=== PATIENT | male | born 1970 | race Caucasian/White ===

== ENCOUNTER 2021-10-31 11:36 | Inpatient (IN) ==
[2021-10-31] MEDS ORDERED: INSULIN REGULAR 100 UNIT/ML IV STA (12:06)
[2021-10-31] MEDS ORDERED: SODIUM CHLORIDE 0.9% 1,000 ML IV STA ×2 (12:06→13:14)
[2021-10-31 12:23] LABS: Basophils % 0.1 % (0.0-0.8); Hematocrit 31.2 VOL% (42.0-52.0); Hemoglobin 10.5 GM/DL (14.0-18.0); Immature Granulocytes % 1.2 %; Immature Granulocytes Absolute 0.17 #; Lymphocytes # 0.6 10*3/uL (1.4-4.0); Lymphocytes % 3.9 % (21.2-54.2); Mean Corpuscular HGB Conc 33.7 GM/DL (32-36); Mean Corpuscular Volume 83.9 FL (87-102); Mean Platelet Volume 10.3 FL (9.6-12.0); Monocytes # 1.3 10*3/uL (0.11-0.8); Monocytes % 9.4 % (1.7-12.7); Neutrophils % 85.4 % (38.7-73.9); Platelet Count 222 T/CUMM (130-400); Red Blood Count 3.72 MC/CUMM (3.8-5.5); Red Cell Distribution Width 13.6 % (9.3-17.3); White Blood Count 14.2 T/CUMM (4-12)
[2021-10-31 12:38] LABS: Albumin 1.3 G/DL (3.4-5.0); Bilirubin,Total 0.5 MG/DL (0.20-1.00); Calcium 8.4 MG/DL (8.5-10.1); Osmolality,Calculated 278.5 MOS/KG (273-304); Potassium 3.7 MMOL/L (3.5-5.1); Total Protein 6.5 G/DL (6.4-8.2)
[2021-10-31] MEDS ORDERED: LEVOFLOXACIN INJ 750 MG/150 ML PREMIX IV STA (13:15)
[2021-10-31] MEDS ORDERED: MORPHINE 2 MG/1 ML SYRINGE IV STA (13:22)
[2021-10-31 13:36] LABS: Lymphocytes 6 % (20-55); Total Cells Counted 100
[2021-10-31 13:37] LABS: Platelet Estimate Normal
[2021-10-31] MEDS ORDERED: DOCUSATE SODIUM 100 MG CAPSULE PO PRN ×2 (14:18→14:26)
[2021-10-31] MEDS ORDERED: MORPHINE 2 MG/1 ML SYRINGE IV PRN (14:18)
[2021-10-31] MEDS ORDERED: ALUMINUM/MAGNES/SIMETH MAX STR 30 ML UDCUP PO PRN (14:26)
[2021-10-31] MEDS ORDERED: ACETAMINOPHEN 325 MG TABLET PO PRN (14:26)
[2021-10-31] MEDS ORDERED: GLUCAGON 1 MG VIAL IM PRN (14:26)
[2021-10-31] MEDS ORDERED: LACTULOSE 20 GM/30 ML UDCUP PO PRN (14:26)
[2021-10-31] MEDS ORDERED: hydrALAZINE 20 MG/1 ML VIAL IV PRN (14:26)
[2021-10-31] MEDS ORDERED: SODIUM CHLORIDE 0.9% 1,000 ML IV SCH (14:30)
[2021-10-31] MEDS ORDERED: DEXTROSE 10% 250 ML BAG IV PRN (14:34)
[2021-10-31] MEDS: MEROPENEM 500 MG in SODIUM CHLORIDE 0.9% 100 ML IV SCH ×2 (15:07→22:04)
[2021-10-31] MEDS ORDERED: INSULIN GLARGINE 100 UNIT/ML SUBCUT ONE (15:33)
[2021-10-31 15:37] LABS: Amorphous Crystals,Urine Moderate /HPF (Few); Bacteria,Urine Occasional /HPF (Few); Hyaline Casts,Urine 17 /LPF (0-3)
[2021-10-31 15:45] LABS: Urine Appearance Slightly Cloudy (Clear); Urine Color Yellow (Yellow)
[2021-10-31 15:46] LABS: Bilirubin,Urine Negative (Negative); Blood, Urine Large mg/dL (Negative); Glucose,Urine (UA) >=1000 mg/dL (Negative); Ketones,Urine 15 mg/dL (Negative); Nitrite,Urine Negative (Negative); Protein,Urine 100 mg/dL (Negative)
[2021-10-31] MEDS: ENOXAPARIN 40 MG/0.4 ML SYRINGE SUBCUT SCH (15:59)
[2021-10-31] MEDS: VANCOMYCIN INJ 1,000 MG in SODIUM CHLORIDE 0.9% 250 ML IV SCH (16:00)
[2021-10-31] MEDS: SODIUM CHLORIDE 0.9% 1,000 ML IV SCH (16:00)
[2021-10-31] MEDS ORDERED: INSULIN REGULAR 100 UNIT/ML SUBCUT SCH (16:30)
[2021-10-31] MEDS: NICOTINE 21 MG/24 HR PATCH TRANSDERM SCH (17:00)
[2021-10-31] MEDS: HYDROmorphone 1 MG/1 ML SYRINGE IV PRN (17:10)
[2021-10-31] MEDS: INSULIN REGULAR 100 UNIT/ML SUBCUT SCH ×2 (18:56→22:10)
[2021-10-31] MEDS: INSULIN GLARGINE 100 UNIT/ML SUBCUT SCH (22:05)
[2021-11-01] MEDS: INSULIN REGULAR 100 UNIT/ML SUBCUT SCH ×6 (02:14→22:43)
[2021-11-01] MEDS: SODIUM CHLORIDE 0.9% 1,000 ML IV SCH ×2 (02:20→11:48)
[2021-11-01] MEDS: MEROPENEM 500 MG in SODIUM CHLORIDE 0.9% 100 ML IV SCH ×4 (02:20→21:10)
[2021-11-01] MEDS: HYDROmorphone 1 MG/1 ML SYRINGE IV PRN ×5 (02:21→21:20)
[2021-11-01] MEDS: VANCOMYCIN INJ 1,000 MG in SODIUM CHLORIDE 0.9% 250 ML IV SCH ×2 (04:14→16:00)
[2021-11-01 07:09] LABS: Basophils % 0.1 % (0.0-0.8); Eosinophils % 0.1 % (0.00-10.9); Hematocrit 27.9 VOL% (42.0-52.0); Hemoglobin 9.3 GM/DL (14.0-18.0); Immature Granulocytes % 1.2 %; Immature Granulocytes Absolute 0.15 #; Lymphocytes # 0.6 10*3/uL (1.4-4.0); Lymphocytes % 4.8 % (21.2-54.2); Mean Corpuscular HGB Conc 33.3 GM/DL (32-36); Mean Corpuscular Volume 83.3 FL (87-102); Mean Platelet Volume 10.1 FL (9.6-12.0); Monocytes % 8.3 % (1.7-12.7); Neutrophils % 85.5 % (38.7-73.9); Platelet Count 169 T/CUMM (130-400); Red Blood Count 3.35 MC/CUMM (3.8-5.5); Red Cell Distribution Width 13.5 % (9.3-17.3); White Blood Count 12.3 T/CUMM (4-12)
[2021-11-01] MEDS ORDERED: CLINDAMYCIN INJ 900 MG/50 ML PREMIX IV ONE (07:25)
[2021-11-01 07:29] LABS: Calcium 7.7 MG/DL (8.5-10.1); Osmolality,Calculated 273.2 MOS/KG (273-304); Potassium 3.1 MMOL/L (3.5-5.1)
[2021-11-01 07:36] LABS: Band Neutrophils 1 % (0-10); Hypochromia 1+; Lymphocytes 4 % (20-55); Microcytosis 1+; Platelet Estimate Adequate; Total Cells Counted 100
[2021-11-01 07:40] LABS: Alanine Aminotransferase 10 U/L (16-61); Albumin 1.1 G/DL (3.4-5.0); Alkaline Phosphatase 71 U/L (45-117); Aspartate Amino Transferase 18 U/L (0-37); Blood Urea Nitrogen 31 MG/DL (7-18); Calcium 7.7 MG/DL (8.5-10.1); Carbon Dioxide 25 MMOL/L (21-32); Chloride 102 MMOL/L (98-107); Cholesterol 110 MG/DL (50-200); Estimated Glom Filtration Rate 107 ML/MIN; Glucose 89 MG/DL (74-106); HDL Cholesterol < 10 MG/DL (40-60); Osmolality,Calculated 271.4 MOS/KG (273-304); Sodium 133 MMOL/L (136-145); Total Protein 5.7 G/DL (6.4-8.2); Triglycerides 285 MG/DL (2-150)
[2021-11-01] MEDS ORDERED: LIDOCAINE 2% 5 ML VIAL ONE (08:23)
[2021-11-01] MEDS ORDERED: propofoL 200 MG/20 ML VIAL IV ONE (08:23)
[2021-11-01] MEDS ORDERED: ONDANSETRON 4 MG/2 ML VIAL ONE (08:23)
[2021-11-01] MEDS ORDERED: MIDAZOLAM 2 MG/2 ML VIAL ONE (08:23)
[2021-11-01] MEDS ORDERED: fentaNYL 100 MCG/2 ML VIAL ONE (08:23)
[2021-11-01] MEDS ORDERED: FAMOTIDINE 20 MG/2 ML VIAL IV ONE (08:30)
[2021-11-01] MEDS ORDERED: LIDOCAINE 1% 5 ML VIAL ONE (08:42)
[2021-11-01] MEDS ORDERED: ROPIVACAINE 0.5% 30 ML VIAL ONE (08:42)
[2021-11-01] MEDS: LACTATED RINGERS 1,000 ML IV SCH ×2 (08:52→11:14)
[2021-11-01] MEDS: lisinopriL 20 MG TABLET PO SCH (09:04)
[2021-11-01] MEDS: PANTOPRAZOLE 40 MG TABLET PO SCH (09:04)
[2021-11-01] MEDS ORDERED: ETOMIDATE 40 MG/20 ML VIAL IV ONE (09:21)
[2021-11-01] MEDS ORDERED: PHENYLEPHRINE 10 MG/1 ML VIAL IV ONE (09:21)
[2021-11-01] MEDS ORDERED: PHENYLEPHRINE 1 MG/10 ML SYRINGE IV ONE (09:21)
[2021-11-01] MEDS ORDERED: CALCIUM CHLORIDE 1,000 MG/10 ML VIAL IV ONE (09:24)
[2021-11-01] MEDS ORDERED: SEVOFLURANE 1 UNIT/15 MINUTE INH ONE ×2 (09:24→10:01)
[2021-11-01] MEDS ORDERED: SODIUM CHLORIDE 0.9% 250 ML IV ONE (09:24)
[2021-11-01] MEDS ORDERED: ONDANSETRON 4 MG/2 ML VIAL IV PRN (10:37)
[2021-11-01] MEDS: NICOTINE 21 MG/24 HR PATCH TRANSDERM SCH (11:30)
[2021-11-01 15:20] LABS: Calcium 8.3 MG/DL (8.5-10.1); Potassium 2.9 MMOL/L (3.5-5.1)
[2021-11-01] MEDS: ENOXAPARIN 40 MG/0.4 ML SYRINGE SUBCUT SCH (15:59)
[2021-11-01] MEDS: POTASSIUM CHLORIDE 20 MEQ TABLET PO SCH ×2 (16:00→21:19)
[2021-11-01] MEDS: INSULIN GLARGINE 100 UNIT/ML SUBCUT SCH (22:41)
[2021-11-02] MEDS: HYDROmorphone 1 MG/1 ML SYRINGE IV PRN ×7 (02:35→22:12)
[2021-11-02] MEDS: INSULIN REGULAR 100 UNIT/ML SUBCUT SCH ×6 (02:38→22:11)
[2021-11-02] MEDS: MEROPENEM 500 MG in SODIUM CHLORIDE 0.9% 100 ML IV SCH ×2 (02:39→08:23)
[2021-11-02] MEDS: SODIUM CHLORIDE 0.9% 1,000 ML IV SCH ×3 (04:26→17:28)
[2021-11-02] MEDS: VANCOMYCIN INJ 1,000 MG in SODIUM CHLORIDE 0.9% 250 ML IV SCH (04:26)
[2021-11-02 06:10] LABS: Basophils % 0.2 % (0.0-0.8); Eosinophils % 0.1 % (0.00-10.9); Hematocrit 27.7 VOL% (42.0-52.0); Immature Granulocytes % 1.8 %; Immature Granulocytes Absolute 0.16 #; Lymphocytes # 0.7 10*3/uL (1.4-4.0); Lymphocytes % 7.6 % (21.2-54.2); Mean Corpuscular HGB Conc 32.5 GM/DL (32-36); Mean Corpuscular Volume 85.5 FL (87-102); Mean Platelet Volume 10.2 FL (9.6-12.0); Monocytes # 1.2 10*3/uL (0.11-0.8); Neutrophils % 77.3 % (38.7-73.9); Platelet Count 159 T/CUMM (130-400); Red Blood Count 3.24 MC/CUMM (3.8-5.5); Red Cell Distribution Width 13.9 % (9.3-17.3)
[2021-11-02 06:26] LABS: Calcium 8.1 MG/DL (8.5-10.1); Osmolality,Calculated 279.7 MOS/KG (273-304); Potassium 4.1 MMOL/L (3.5-5.1)
[2021-11-02 06:34] LABS: Band Neutrophils 7 % (0-10); Hypochromia 1+; Lymphocytes 3 % (20-55); Metamyelocytes 1 %; Microcytosis 1+; Total Cells Counted 100
[2021-11-02 06:35] LABS: Platelet Estimate Adequate
[2021-11-02] MEDS: lisinopriL 20 MG TABLET PO SCH (08:23)
[2021-11-02] MEDS: PANTOPRAZOLE 40 MG TABLET PO SCH (08:23)
[2021-11-02] MEDS: NICOTINE 21 MG/24 HR PATCH TRANSDERM SCH (08:24)
[2021-11-02] MEDS: GABAPENTIN 100 MG CAPSULE PO SCH ×2 (12:19→20:24)
[2021-11-02] MEDS: LEVOFLOXACIN INJ 750 MG/150 ML PREMIX IV SCH (15:10)
[2021-11-02] MEDS: ENOXAPARIN 40 MG/0.4 ML SYRINGE SUBCUT SCH (15:12)
[2021-11-02] MEDS: INSULIN GLARGINE 100 UNIT/ML SUBCUT SCH (22:11)
[2021-11-03] MEDS: HYDROmorphone 1 MG/1 ML SYRINGE IV PRN ×4 (03:03→21:21)
[2021-11-03 03:59] LABS: Basophils % 0.1 % (0.0-0.8); Eosinophils % 0.1 % (0.00-10.9); Hematocrit 26.4 VOL% (42.0-52.0); Hemoglobin 8.4 GM/DL (14.0-18.0); Immature Granulocytes % 1.7 %; Immature Granulocytes Absolute 0.15 #; Lymphocytes # 0.9 10*3/uL (1.4-4.0); Lymphocytes % 9.5 % (21.2-54.2); Mean Corpuscular HGB Conc 31.8 GM/DL (32-36); Mean Corpuscular Volume 87.1 FL (87-102); Mean Platelet Volume 9.3 FL (9.6-12.0); Monocytes # 0.9 10*3/uL (0.11-0.8); Monocytes % 10.3 % (1.7-12.7); Neutrophils % 78.3 % (38.7-73.9); Platelet Count 164 T/CUMM (130-400); Red Blood Count 3.03 MC/CUMM (3.8-5.5); Red Cell Distribution Width 14.2 % (9.3-17.3)
[2021-11-03 04:14] LABS: Calcium 7.8 MG/DL (8.5-10.1); Osmolality,Calculated 282.3 MOS/KG (273-304); Potassium 3.8 MMOL/L (3.5-5.1)
[2021-11-03 04:21] LABS: Band Neutrophils 1 % (0-10); Hypochromia 1+; Lymphocytes 4 % (20-55); Microcytosis 1+; Platelet Estimate Adequate; Total Cells Counted 100
[2021-11-03] MEDS: INSULIN REGULAR 100 UNIT/ML SUBCUT SCH ×5 (04:54→21:21)
[2021-11-03] MEDS: SODIUM CHLORIDE 0.9% 1,000 ML IV SCH (08:14)
[2021-11-03] MEDS: LEVOFLOXACIN INJ 750 MG/150 ML PREMIX IV SCH (09:34)
[2021-11-03] MEDS: lisinopriL 20 MG TABLET PO SCH (09:35)
[2021-11-03] MEDS: NICOTINE 21 MG/24 HR PATCH TRANSDERM SCH (09:35)
[2021-11-03] MEDS: PANTOPRAZOLE 40 MG TABLET PO SCH (09:35)
[2021-11-03] MEDS: GABAPENTIN 100 MG CAPSULE PO SCH ×2 (09:35→21:21)
[2021-11-03] MEDS: ENOXAPARIN 40 MG/0.4 ML SYRINGE SUBCUT SCH (17:40)
[2021-11-03] MEDS: INSULIN GLARGINE 100 UNIT/ML SUBCUT SCH (21:20)
[2021-11-04] MEDS: INSULIN REGULAR 100 UNIT/ML SUBCUT SCH ×6 (00:54→20:54)
[2021-11-04 05:55] LABS: Albumin 0.9 G/DL (3.4-5.0); Bilirubin,Total 0.5 MG/DL (0.20-1.00); Calcium 7.9 MG/DL (8.5-10.1); Osmolality,Calculated 278.4 MOS/KG (273-304); Potassium 3.9 MMOL/L (3.5-5.1); Total Protein 6.1 G/DL (6.4-8.2)
[2021-11-04] MEDS: HYDROmorphone 1 MG/1 ML SYRINGE IV PRN ×3 (06:27→20:55)
[2021-11-04] MEDS: GABAPENTIN 100 MG CAPSULE PO SCH ×2 (08:42→22:31)
[2021-11-04] MEDS: NICOTINE 21 MG/24 HR PATCH TRANSDERM SCH (08:43)
[2021-11-04] MEDS: PANTOPRAZOLE 40 MG TABLET PO SCH (08:43)
[2021-11-04] MEDS: lisinopriL 20 MG TABLET PO SCH (08:43)
[2021-11-04] MEDS: LEVOFLOXACIN INJ 750 MG/150 ML PREMIX IV SCH (08:43)
[2021-11-04] MEDS: ENOXAPARIN 40 MG/0.4 ML SYRINGE SUBCUT SCH (15:58)
[2021-11-04] MEDS ORDERED: TUBERCULIN SKIN TEST 0.1 ML SYRINGE INTRADERM ONE (17:30)
[2021-11-04] MEDS: INSULIN GLARGINE 100 UNIT/ML SUBCUT SCH (20:54)
[2021-11-05] MEDS: INSULIN REGULAR 100 UNIT/ML SUBCUT SCH ×6 (05:51→21:38)
[2021-11-05] MEDS: LEVOFLOXACIN 750 MG TABLET PO SCH (09:09)
[2021-11-05] MEDS: lisinopriL 20 MG TABLET PO SCH (09:09)
[2021-11-05] MEDS: PANTOPRAZOLE 40 MG TABLET PO SCH (09:09)
[2021-11-05] MEDS: GABAPENTIN 100 MG CAPSULE PO SCH ×2 (09:09→21:37)
[2021-11-05] MEDS: NICOTINE 21 MG/24 HR PATCH TRANSDERM SCH (09:10)
[2021-11-05] MEDS: ENOXAPARIN 40 MG/0.4 ML SYRINGE SUBCUT SCH (15:36)
[2021-11-05] MEDS: HYDROmorphone 1 MG/1 ML SYRINGE IV PRN ×2 (15:42→23:04)
[2021-11-05] MEDS ORDERED: INSULIN GLARGINE 100 UNIT/ML SUBCUT SCH (21:00)
[2021-11-05] MEDS: ZALEPLON 5 MG CAPSULE PO PRN (21:37)
[2021-11-06] MEDS: INSULIN REGULAR 100 UNIT/ML SUBCUT SCH ×6 (01:13→20:55)
[2021-11-06 06:54] LABS: Basophils % 0.2 % (0.0-0.8); Eosinophils % 0.2 % (0.00-10.9); Hematocrit 24.4 VOL% (42.0-52.0); Hemoglobin 7.9 GM/DL (14.0-18.0); Immature Granulocytes % 2.1 %; Immature Granulocytes Absolute 0.25 #; Lymphocytes # 0.8 10*3/uL (1.4-4.0); Lymphocytes % 6.7 % (21.2-54.2); Mean Corpuscular HGB Conc 32.4 GM/DL (32-36); Mean Corpuscular Volume 86.5 FL (87-102); Mean Platelet Volume 9.5 FL (9.6-12.0); Monocytes # 0.9 10*3/uL (0.11-0.8); Monocytes % 7.5 % (1.7-12.7); Neutrophils % 83.3 % (38.7-73.9); Platelet Count 320 T/CUMM (130-400); Red Blood Count 2.82 MC/CUMM (3.8-5.5); White Blood Count 11.8 T/CUMM (4-12)
[2021-11-06 07:21] LABS: Hypochromia 1+; Lymphocytes 5 % (20-55); Microcytosis 1+; Platelet Estimate Adequate; Total Cells Counted 100
[2021-11-06 07:24] LABS: Calcium 7.8 MG/DL (8.5-10.1); Osmolality,Calculated 276.8 MOS/KG (273-304); Potassium 3.8 MMOL/L (3.5-5.1)
[2021-11-06] MEDS: NICOTINE 21 MG/24 HR PATCH TRANSDERM SCH (09:57)
[2021-11-06] MEDS: IRON (CARBONYL)/VIT C/B12/FA TABLET PO SCH (09:58)
[2021-11-06] MEDS: LEVOFLOXACIN 750 MG TABLET PO SCH (09:58)
[2021-11-06] MEDS: lisinopriL 20 MG TABLET PO SCH (09:58)
[2021-11-06] MEDS: GABAPENTIN 100 MG CAPSULE PO SCH ×2 (09:58→20:55)
[2021-11-06] MEDS: PANTOPRAZOLE 40 MG TABLET PO SCH (09:58)
[2021-11-06] MEDS: ONDANSETRON 4 MG/2 ML VIAL IV PRN (12:02)
[2021-11-06] MEDS: ENOXAPARIN 40 MG/0.4 ML SYRINGE SUBCUT SCH (15:44)
[2021-11-06] MEDS: ZALEPLON 5 MG CAPSULE PO PRN (20:56)
[2021-11-06] MEDS ORDERED: INSULIN GLARGINE 100 UNIT/ML SUBCUT SCH (21:00)
[2021-11-07] MEDS: INSULIN REGULAR 100 UNIT/ML SUBCUT SCH ×6 (00:43→21:29)
[2021-11-07] MEDS: HYDROmorphone 1 MG/1 ML SYRINGE IV PRN ×4 (03:52→21:30)
[2021-11-07 05:31] LABS: Basophils % 0.1 % (0.0-0.8); Eosinophils % 0.2 % (0.00-10.9); Hematocrit 22.5 VOL% (42.0-52.0); Hemoglobin 7.2 GM/DL (14.0-18.0); Immature Granulocytes % 1.4 %; Immature Granulocytes Absolute 0.17 #; Lymphocytes # 1.1 10*3/uL (1.4-4.0); Lymphocytes % 9.2 % (21.2-54.2); Mean Corpuscular Volume 87.2 FL (87-102); Mean Platelet Volume 9.3 FL (9.6-12.0); Monocytes # 0.8 10*3/uL (0.11-0.8); Monocytes % 6.3 % (1.7-12.7); Neutrophils % 82.8 % (38.7-73.9); Platelet Count 365 T/CUMM (130-400); Red Blood Count 2.58 MC/CUMM (3.8-5.5); White Blood Count 12.2 T/CUMM (4-12)
[2021-11-07 05:45] LABS: Calcium 7.5 MG/DL (8.5-10.1); Osmolality,Calculated 278.8 MOS/KG (273-304); Potassium 3.7 MMOL/L (3.5-5.1)
[2021-11-07 05:55] LABS: Eosinophils 1 % (0-10); Hypochromia 1+; Lymphocytes 10 % (20-55); Microcytosis 1+; Platelet Estimate Adequate; Total Cells Counted 100
[2021-11-07] MEDS: PANTOPRAZOLE 40 MG TABLET PO SCH ×2 (08:15→21:22)
[2021-11-07] MEDS: lisinopriL 20 MG TABLET PO SCH (08:15)
[2021-11-07] MEDS: LEVOFLOXACIN 750 MG TABLET PO SCH (08:15)
[2021-11-07] MEDS: GABAPENTIN 100 MG CAPSULE PO SCH ×2 (08:15→21:22)
[2021-11-07] MEDS: IRON (CARBONYL)/VIT C/B12/FA TABLET PO SCH (08:17)
[2021-11-07] MEDS: NICOTINE 21 MG/24 HR PATCH TRANSDERM SCH (08:17)
[2021-11-07] MEDS ORDERED: CHOLECALCIFEROL 1,000 UNIT TABLET PO SCH (09:00)
[2021-11-07] MEDS ORDERED: ERGOCALCIFEROL 50,000 UNIT CAPSULE PO ONE (09:19)
[2021-11-07] MEDS: MULTIVITAMIN (BEROCCA) TABLET PO SCH (11:32)
[2021-11-07] MEDS: ENOXAPARIN 40 MG/0.4 ML SYRINGE SUBCUT SCH (16:46)
[2021-11-07] MEDS: ONDANSETRON 4 MG/2 ML VIAL IV PRN (17:19)
[2021-11-07] MEDS: ZALEPLON 5 MG CAPSULE PO PRN (21:22)
[2021-11-07] MEDS: buPROPion SR 100 MG TABLET PO SCH (21:22)
[2021-11-07] MEDS: INSULIN GLARGINE 100 UNIT/ML SUBCUT SCH (21:29)
[2021-11-08] MEDS: HYDROmorphone 1 MG/1 ML SYRINGE IV PRN ×5 (01:23→21:07)
[2021-11-08] MEDS: INSULIN REGULAR 100 UNIT/ML SUBCUT SCH ×6 (01:24→21:08)
[2021-11-08 07:14] LABS: Basophils % 0.2 % (0.0-0.8); Eosinophils % 0.2 % (0.00-10.9); Hematocrit 22.4 VOL% (42.0-52.0); Hemoglobin 7.2 GM/DL (14.0-18.0); Immature Granulocytes % 1.1 %; Immature Granulocytes Absolute 0.16 #; Lymphocytes # 0.9 10*3/uL (1.4-4.0); Lymphocytes % 6.3 % (21.2-54.2); Mean Corpuscular HGB Conc 32.1 GM/DL (32-36); Mean Corpuscular Volume 88.2 FL (87-102); Monocytes # 0.9 10*3/uL (0.11-0.8); Monocytes % 5.8 % (1.7-12.7); Neutrophils % 86.4 % (38.7-73.9); Platelet Count 452 T/CUMM (130-400); Red Blood Count 2.54 MC/CUMM (3.8-5.5); White Blood Count 14.5 T/CUMM (4-12)
[2021-11-08 07:50] LABS: Calcium 7.7 MG/DL (8.5-10.1); Potassium 4.2 MMOL/L (3.5-5.1)
[2021-11-08] MEDS: MULTIVITAMIN (BEROCCA) TABLET PO SCH (09:38)
[2021-11-08] MEDS: CHOLECALCIFEROL 5,000 UNIT TABLET PO SCH (09:38)
[2021-11-08] MEDS: GABAPENTIN 100 MG CAPSULE PO SCH ×2 (09:39→21:07)
[2021-11-08] MEDS: NICOTINE 21 MG/24 HR PATCH TRANSDERM SCH (09:39)
[2021-11-08] MEDS: PANTOPRAZOLE 40 MG TABLET PO SCH ×2 (09:39→21:07)
[2021-11-08] MEDS: IRON (CARBONYL)/VIT C/B12/FA TABLET PO SCH (09:39)
[2021-11-08] MEDS: LEVOFLOXACIN 750 MG TABLET PO SCH (09:39)
[2021-11-08] MEDS: lisinopriL 20 MG TABLET PO SCH (09:39)
[2021-11-08] MEDS: MENTHOL/ZINC OXIDE OINT 71 GM JAR TOP SCH (13:30)
[2021-11-08] MEDS: ENOXAPARIN 40 MG/0.4 ML SYRINGE SUBCUT SCH (15:22)
[2021-11-08] MEDS: ZALEPLON 5 MG CAPSULE PO PRN (21:08)
[2021-11-08] MEDS: buPROPion SR 100 MG TABLET PO SCH (21:08)
[2021-11-08] MEDS: INSULIN GLARGINE 100 UNIT/ML SUBCUT SCH (21:08)
[2021-11-09] MEDS: INSULIN REGULAR 100 UNIT/ML SUBCUT SCH ×6 (00:45→20:36)
[2021-11-09] MEDS: HYDROmorphone 1 MG/1 ML SYRINGE IV PRN ×4 (00:49→20:35)
[2021-11-09 05:37] LABS: Basophils % 0.1 % (0.0-0.8); Eosinophils % 0.3 % (0.00-10.9); Hematocrit 22.6 VOL% (42.0-52.0); Immature Granulocytes % 0.9 %; Immature Granulocytes Absolute 0.12 #; Lymphocytes # 0.9 10*3/uL (1.4-4.0); Lymphocytes % 6.7 % (21.2-54.2); Mean Corpuscular Volume 89.3 FL (87-102); Mean Platelet Volume 10.9 FL (9.6-12.0); Monocytes # 0.9 10*3/uL (0.11-0.8); Platelet Count 318 T/CUMM (130-400); Red Blood Count 2.53 MC/CUMM (3.8-5.5); Red Cell Distribution Width 14.2 % (9.3-17.3); White Blood Count 13.5 T/CUMM (4-12)
[2021-11-09 06:01] LABS: Calcium 7.7 MG/DL (8.5-10.1); Osmolality,Calculated 277.2 MOS/KG (273-304); Potassium 4.5 MMOL/L (3.5-5.1)
[2021-11-09] MEDS ORDERED: glyBURIDE 5 MG TABLET PO SCH (08:00)
[2021-11-09] MEDS: IRON (CARBONYL)/VIT C/B12/FA TABLET PO SCH (08:48)
[2021-11-09] MEDS: lisinopriL 20 MG TABLET PO SCH (08:49)
[2021-11-09] MEDS: CHOLECALCIFEROL 5,000 UNIT TABLET PO SCH (08:49)
[2021-11-09] MEDS: LEVOFLOXACIN 750 MG TABLET PO SCH (08:50)
[2021-11-09] MEDS: PANTOPRAZOLE 40 MG TABLET PO SCH ×2 (08:50→20:35)
[2021-11-09] MEDS: MULTIVITAMIN (BEROCCA) TABLET PO SCH (08:50)
[2021-11-09] MEDS: VANCOMYCIN INJ 1,000 MG in SODIUM CHLORIDE 0.9% 250 ML IV SCH ×2 (08:52→20:36)
[2021-11-09] MEDS: MENTHOL/ZINC OXIDE OINT 71 GM JAR TOP SCH (08:52)
[2021-11-09] MEDS: NICOTINE 21 MG/24 HR PATCH TRANSDERM SCH (08:53)
[2021-11-09] MEDS: GABAPENTIN 100 MG CAPSULE PO SCH ×2 (08:55→20:35)
[2021-11-09] MEDS ORDERED: SODIUM HYPOCHLORITE 0.25% IRRIG 473 ML BOTTLE TOP SCH (09:00)
[2021-11-09 12:53] LABS: Bilirubin,Urine Negative (Negative); Blood, Urine Moderate mg/dL (Negative); Glucose,Urine (UA) Negative (Negative); Ketones,Urine Negative (Negative); Nitrite,Urine Negative (Negative); Protein,Urine 100 mg/dL (Negative); RBC,Urine 46 /HPF (0-4); Squamous Epithelial Cell,Urine Occasional /HPF (0-10); Urine Appearance Cloudy (Clear); Urine Color Yellow (Yellow); Urine Urobilinogen 0.2 eU/dL (<2.0); Urine pH 5.5 (4.5-8.0)
[2021-11-09] MEDS ORDERED: HYDROmorphone 1 MG/1 ML SYRINGE IV PRN (13:50)
[2021-11-09] MEDS: ENOXAPARIN 40 MG/0.4 ML SYRINGE SUBCUT SCH (15:20)
[2021-11-09] MEDS: buPROPion SR 100 MG TABLET PO SCH (20:35)
[2021-11-09] MEDS: INSULIN GLARGINE 100 UNIT/ML SUBCUT SCH (20:36)
[2021-11-10] MEDS: INSULIN REGULAR 100 UNIT/ML SUBCUT SCH ×6 (01:13→21:08)
[2021-11-10 05:07] LABS: Basophils % 0.2 % (0.0-0.8); Eosinophils % 0.3 % (0.00-10.9); Hematocrit 22.5 VOL% (42.0-52.0); Hemoglobin 7.1 GM/DL (14.0-18.0); Immature Granulocytes % 1.1 %; Immature Granulocytes Absolute 0.14 #; Lymphocytes # 1.2 10*3/uL (1.4-4.0); Lymphocytes % 9.6 % (21.2-54.2); Mean Corpuscular HGB Conc 31.6 GM/DL (32-36); Mean Corpuscular Volume 88.2 FL (87-102); Mean Platelet Volume 8.6 FL (9.6-12.0); Monocytes % 7.6 % (1.7-12.7); Neutrophils % 81.2 % (38.7-73.9); Platelet Count 547 T/CUMM (130-400); Red Blood Count 2.55 MC/CUMM (3.8-5.5); Red Cell Distribution Width 14.2 % (9.3-17.3); White Blood Count 12.7 T/CUMM (4-12)
[2021-11-10 05:25] LABS: Calcium 8.1 MG/DL (8.5-10.1); Osmolality,Calculated 279.7 MOS/KG (273-304); Potassium 4.2 MMOL/L (3.5-5.1)
[2021-11-10 05:30] LABS: % Iron Saturation 15.1 % (18-50); Ferritin 586.6 ng/mL (26-388)
[2021-11-10 05:41] LABS: Folate 13.43 NG/ML (5.38-24.0); Vitamin B12 803 PG/ML (211-911)
[2021-11-10] MEDS ORDERED: ERGOCALCIFEROL 50,000 UNIT CAPSULE PO ONE (08:30)
[2021-11-10] MEDS: cefTRIAXone 2,000 MG in SODIUM CHLORIDE 0.9% 100 ML IV SCH (08:41)
[2021-11-10] MEDS: HYDROmorphone 1 MG/1 ML SYRINGE IV PRN ×3 (08:42→19:55)
[2021-11-10] MEDS: CHOLECALCIFEROL 5,000 UNIT TABLET PO SCH (08:46)
[2021-11-10] MEDS: GABAPENTIN 100 MG CAPSULE PO SCH ×2 (08:47→21:08)
[2021-11-10] MEDS: MENTHOL/ZINC OXIDE OINT 71 GM JAR TOP SCH (08:47)
[2021-11-10] MEDS: lisinopriL 20 MG TABLET PO SCH (08:47)
[2021-11-10] MEDS: MULTIVITAMIN (BEROCCA) TABLET PO SCH (08:47)
[2021-11-10] MEDS: IRON (CARBONYL)/VIT C/B12/FA TABLET PO SCH (08:47)
[2021-11-10] MEDS: PANTOPRAZOLE 40 MG TABLET PO SCH ×2 (08:47→21:08)
[2021-11-10] MEDS ORDERED: DAPAGLIFLOZIN 5 MG TABLET PO SCH (09:00)
[2021-11-10 09:12] LABS: Hemoglobin A1 (Alkaline) 98.1 % (96.5-98.5); Hemoglobin A2 (Alkaline) 1.9 % (1.5-3.5)
[2021-11-10 09:32] LABS: Sedimentation Rate-Westergren 137 MM/HR (0-20)
[2021-11-10] MEDS: VANCOMYCIN INJ 1,000 MG in SODIUM CHLORIDE 0.9% 250 ML IV SCH ×2 (09:52→21:29)
[2021-11-10] MEDS: NICOTINE 21 MG/24 HR PATCH TRANSDERM SCH (10:45)
[2021-11-10] MEDS: ENOXAPARIN 40 MG/0.4 ML SYRINGE SUBCUT SCH (16:27)
[2021-11-10] MEDS: ZALEPLON 5 MG CAPSULE PO PRN (21:08)
[2021-11-10] MEDS: buPROPion SR 100 MG TABLET PO SCH (21:08)
[2021-11-10] MEDS: INSULIN GLARGINE 100 UNIT/ML SUBCUT SCH (21:29)
[2021-11-11] MEDS: INSULIN REGULAR 100 UNIT/ML SUBCUT SCH ×6 (00:06→19:58)
[2021-11-11] MEDS: HYDROmorphone 1 MG/1 ML SYRINGE IV PRN ×4 (05:40→23:48)
[2021-11-11 06:22] LABS: Basophils % 0.1 % (0.0-0.8); Eosinophils # 0.1 10*3/uL (0.0-0.87); Eosinophils % 0.5 % (0.00-10.9); Hematocrit 21.3 VOL% (42.0-52.0); Hemoglobin 6.7 GM/DL (14.0-18.0); Immature Granulocytes % 0.8 %; Lymphocytes # 1.1 10*3/uL (1.4-4.0); Lymphocytes % 9.2 % (21.2-54.2); Mean Corpuscular HGB Conc 31.5 GM/DL (32-36); Mean Corpuscular Volume 89.5 FL (87-102); Mean Platelet Volume 8.7 FL (9.6-12.0); Monocytes # 0.9 10*3/uL (0.11-0.8); Monocytes % 7.9 % (1.7-12.7); Neutrophils % 81.5 % (38.7-73.9); Platelet Count 598 T/CUMM (130-400); Red Blood Count 2.38 MC/CUMM (3.8-5.5); Red Cell Distribution Width 14.5 % (9.3-17.3); White Blood Count 11.9 T/CUMM (4-12)
[2021-11-11 06:36] LABS: Calcium 7.7 MG/DL (8.5-10.1); Osmolality,Calculated 287.8 MOS/KG (273-304)
[2021-11-11] MEDS: cefTRIAXone 2,000 MG in SODIUM CHLORIDE 0.9% 100 ML IV SCH (09:34)
[2021-11-11] MEDS: IRON (CARBONYL)/VIT C/B12/FA TABLET PO SCH (09:35)
[2021-11-11] MEDS: NICOTINE 21 MG/24 HR PATCH TRANSDERM SCH (09:35)
[2021-11-11] MEDS: GABAPENTIN 100 MG CAPSULE PO SCH ×2 (09:35→09:54)
[2021-11-11] MEDS: CHOLECALCIFEROL 5,000 UNIT TABLET PO SCH (09:35)
[2021-11-11] MEDS: DAPAGLIFLOZIN 10 MG TABLET PO SCH (09:35)
[2021-11-11] MEDS: sitaGLIPtin 100 MG TABLET PO SCH (09:36)
[2021-11-11] MEDS: PANTOPRAZOLE 40 MG TABLET PO SCH ×2 (09:36→20:23)
[2021-11-11] MEDS: MULTIVITAMIN (BEROCCA) TABLET PO SCH (09:36)
[2021-11-11] MEDS: lisinopriL 20 MG TABLET PO SCH (09:36)
[2021-11-11] MEDS: MENTHOL/ZINC OXIDE OINT 71 GM JAR TOP SCH (09:51)
[2021-11-11] MEDS: VANCOMYCIN INJ 1,000 MG in SODIUM CHLORIDE 0.9% 250 ML IV SCH ×3 (10:35→20:32)
[2021-11-11] MEDS ORDERED: SODIUM CHLORIDE 0.9% 1,000 ML IV PRN (10:59)
[2021-11-11] MEDS: ENOXAPARIN 40 MG/0.4 ML SYRINGE SUBCUT SCH (15:55)
[2021-11-11 17:06] LABS: Soluble Transf Receptor (sTfR) 2.9 mg/L (1.8 - 4.6)
[2021-11-11] MEDS: SUCRALFATE 1 GM/10 ML UDCUP PO SCH (20:21)
[2021-11-11] MEDS: ZALEPLON 5 MG CAPSULE PO PRN (20:23)
[2021-11-11] MEDS: buPROPion SR 100 MG TABLET PO SCH (20:23)
[2021-11-12] MEDS: INSULIN REGULAR 100 UNIT/ML SUBCUT SCH ×6 (00:33→20:50)
[2021-11-12] MEDS: HYDROmorphone 1 MG/1 ML SYRINGE IV PRN ×5 (04:05→20:50)
[2021-11-12 07:34] LABS: Calcium 8.4 MG/DL (8.5-10.1); Osmolality,Calculated 283.5 MOS/KG (273-304); Potassium 4.3 MMOL/L (3.5-5.1)
[2021-11-12] MEDS: ONDANSETRON 4 MG/2 ML VIAL IV PRN (07:53)
[2021-11-12 08:00] LABS: Hematocrit 25.5 VOL% (42.0-52.0)
[2021-11-12] MEDS: cefTRIAXone 2,000 MG in SODIUM CHLORIDE 0.9% 100 ML IV SCH (09:37)
[2021-11-12] MEDS: IRON (CARBONYL)/VIT C/B12/FA TABLET PO SCH (09:38)
[2021-11-12] MEDS: CHOLECALCIFEROL 5,000 UNIT TABLET PO SCH (09:38)
[2021-11-12] MEDS: MULTIVITAMIN (BEROCCA) TABLET PO SCH (09:38)
[2021-11-12] MEDS: NICOTINE 21 MG/24 HR PATCH TRANSDERM SCH (09:38)
[2021-11-12] MEDS: PANTOPRAZOLE 40 MG TABLET PO SCH ×2 (09:38→20:51)
[2021-11-12] MEDS: DAPAGLIFLOZIN 10 MG TABLET PO SCH (09:38)
[2021-11-12] MEDS: MENTHOL/ZINC OXIDE OINT 71 GM JAR TOP SCH (09:38)
[2021-11-12] MEDS: sitaGLIPtin 100 MG TABLET PO SCH (09:38)
[2021-11-12] MEDS: lisinopriL 20 MG TABLET PO SCH (09:38)
[2021-11-12] MEDS: VANCOMYCIN INJ 1,000 MG in SODIUM CHLORIDE 0.9% 250 ML IV SCH (12:14)
[2021-11-12] MEDS: ENOXAPARIN 40 MG/0.4 ML SYRINGE SUBCUT SCH (16:02)
[2021-11-12] MEDS: buPROPion SR 100 MG TABLET PO SCH (20:50)
[2021-11-12] MEDS: ZALEPLON 5 MG CAPSULE PO PRN (20:50)
[2021-11-12] MEDS: oxyCODONE ER 10 MG TABLET PO SCH (20:51)
[2021-11-12] MEDS: SUCRALFATE 1 GM/10 ML UDCUP PO SCH (20:52)
[2021-11-13] MEDS: INSULIN REGULAR 100 UNIT/ML SUBCUT SCH ×6 (01:03→20:07)
[2021-11-13] MEDS: HYDROmorphone 1 MG/1 ML SYRINGE IV PRN ×2 (01:03→05:08)
[2021-11-13 06:27] LABS: Basophils % 0.2 % (0.0-0.8); Eosinophils # 0.1 10*3/uL (0.0-0.87); Eosinophils % 0.9 % (0.00-10.9); Hematocrit 26.1 VOL% (42.0-52.0); Hemoglobin 7.9 GM/DL (14.0-18.0); Immature Granulocytes % 0.9 %; Immature Granulocytes Absolute 0.11 #; Lymphocytes # 1.1 10*3/uL (1.4-4.0); Lymphocytes % 9.8 % (21.2-54.2); Mean Corpuscular HGB Conc 30.3 GM/DL (32-36); Mean Corpuscular Volume 88.5 FL (87-102); Mean Platelet Volume 8.2 FL (9.6-12.0); Monocytes # 0.9 10*3/uL (0.11-0.8); Neutrophils % 80.2 % (38.7-73.9); Platelet Count 743 T/CUMM (130-400); Red Blood Count 2.95 MC/CUMM (3.8-5.5); Red Cell Distribution Width 15.3 % (9.3-17.3); White Blood Count 11.6 T/CUMM (4-12)
[2021-11-13 06:52] LABS: Calcium 8.5 MG/DL (8.5-10.1); Osmolality,Calculated 284.5 MOS/KG (273-304)
[2021-11-13] MEDS: oxyCODONE ER 10 MG TABLET PO SCH ×2 (08:53→20:08)
[2021-11-13] MEDS: CHOLECALCIFEROL 5,000 UNIT TABLET PO SCH (08:53)
[2021-11-13] MEDS: sitaGLIPtin 100 MG TABLET PO SCH (08:55)
[2021-11-13] MEDS: MULTIVITAMIN (BEROCCA) TABLET PO SCH (08:56)
[2021-11-13] MEDS: IRON (CARBONYL)/VIT C/B12/FA TABLET PO SCH (08:56)
[2021-11-13] MEDS: lisinopriL 20 MG TABLET PO SCH (08:56)
[2021-11-13] MEDS: DAPAGLIFLOZIN 10 MG TABLET PO SCH (08:56)
[2021-11-13] MEDS: NICOTINE 21 MG/24 HR PATCH TRANSDERM SCH (08:58)
[2021-11-13] MEDS: cefTRIAXone 2,000 MG in SODIUM CHLORIDE 0.9% 100 ML IV SCH (09:01)
[2021-11-13] MEDS: MENTHOL/ZINC OXIDE OINT 71 GM JAR TOP SCH (09:09)
[2021-11-13] MEDS: PANTOPRAZOLE 40 MG TABLET PO SCH ×2 (09:17→20:08)
[2021-11-13] MEDS: VANCOMYCIN INJ 1,000 MG in SODIUM CHLORIDE 0.9% 250 ML IV SCH (13:22)
[2021-11-13] MEDS: DOCUSATE SODIUM 100 MG CAPSULE PO SCH ×2 (13:24→20:08)
[2021-11-13] MEDS: POLYETHYLENE GLYCOL POWDER 17 GM PACK PO SCH (13:24)
[2021-11-13] MEDS: ENOXAPARIN 40 MG/0.4 ML SYRINGE SUBCUT SCH (16:36)
[2021-11-13] MEDS: ZALEPLON 5 MG CAPSULE PO PRN (20:07)
[2021-11-13] MEDS: SUCRALFATE 1 GM/10 ML UDCUP PO SCH (20:08)
[2021-11-13] MEDS: buPROPion SR 100 MG TABLET PO SCH (20:08)
[2021-11-14] MEDS: INSULIN REGULAR 100 UNIT/ML SUBCUT SCH ×6 (01:32→20:38)
[2021-11-14 04:48] LABS: Basophils % 0.3 % (0.0-0.8); Eosinophils # 0.1 10*3/uL (0.0-0.87); Hematocrit 25.4 VOL% (42.0-52.0); Hemoglobin 7.8 GM/DL (14.0-18.0); Immature Granulocytes % 0.9 %; Immature Granulocytes Absolute 0.11 #; Lymphocytes # 1.2 10*3/uL (1.4-4.0); Lymphocytes % 10.5 % (21.2-54.2); Mean Corpuscular HGB Conc 30.7 GM/DL (32-36); Mean Platelet Volume 8.1 FL (9.6-12.0); Monocytes # 0.9 10*3/uL (0.11-0.8); Monocytes % 7.3 % (1.7-12.7); Platelet Count 756 T/CUMM (130-400); Red Blood Count 2.92 MC/CUMM (3.8-5.5); Red Cell Distribution Width 15.1 % (9.3-17.3); White Blood Count 11.7 T/CUMM (4-12)
[2021-11-14 05:05] LABS: Calcium 8.4 MG/DL (8.5-10.1); Osmolality,Calculated 286.3 MOS/KG (273-304); Potassium 4.3 MMOL/L (3.5-5.1)
[2021-11-14] MEDS: POLYETHYLENE GLYCOL POWDER 17 GM PACK PO SCH ×2 (09:02→20:32)
[2021-11-14] MEDS: oxyCODONE ER 10 MG TABLET PO SCH ×2 (09:03→20:32)
[2021-11-14] MEDS: DAPAGLIFLOZIN 10 MG TABLET PO SCH (09:03)
[2021-11-14] MEDS: sitaGLIPtin 100 MG TABLET PO SCH (09:03)
[2021-11-14] MEDS: MULTIVITAMIN (BEROCCA) TABLET PO SCH (09:03)
[2021-11-14] MEDS: IRON (CARBONYL)/VIT C/B12/FA TABLET PO SCH (09:03)
[2021-11-14] MEDS: DOCUSATE SODIUM 100 MG CAPSULE PO SCH ×2 (09:03→20:31)
[2021-11-14] MEDS: CHOLECALCIFEROL 5,000 UNIT TABLET PO SCH (09:03)
[2021-11-14] MEDS: cefTRIAXone 2,000 MG in SODIUM CHLORIDE 0.9% 100 ML IV SCH (09:04)
[2021-11-14] MEDS: GLIMEPIRIDE 2 MG TABLET PO SCH (09:04)
[2021-11-14] MEDS: lisinopriL 20 MG TABLET PO SCH (09:04)
[2021-11-14] MEDS: PANTOPRAZOLE 40 MG TABLET PO SCH (09:04)
[2021-11-14] MEDS: NICOTINE 21 MG/24 HR PATCH TRANSDERM SCH (09:05)
[2021-11-14] MEDS: MENTHOL/ZINC OXIDE OINT 71 GM JAR TOP SCH (09:06)
[2021-11-14] MEDS: VANCOMYCIN INJ 1,000 MG in SODIUM CHLORIDE 0.9% 250 ML IV SCH (12:14)
[2021-11-14] MEDS ORDERED: ERGOCALCIFEROL 50,000 UNIT CAPSULE PO ONE (16:06)
[2021-11-14] MEDS: ENOXAPARIN 40 MG/0.4 ML SYRINGE SUBCUT SCH (16:44)
[2021-11-14] MEDS: buPROPion SR 100 MG TABLET PO SCH (20:32)
[2021-11-15] MEDS: INSULIN REGULAR 100 UNIT/ML SUBCUT SCH ×6 (00:36→21:55)
[2021-11-15 05:26] LABS: Basophils % 0.3 % (0.0-0.8); Eosinophils # 0.1 10*3/uL (0.0-0.87); Eosinophils % 1.4 % (0.00-10.9); Hematocrit 23.9 VOL% (42.0-52.0); Hemoglobin 7.3 GM/DL (14.0-18.0); Immature Granulocytes % 1.2 %; Immature Granulocytes Absolute 0.11 #; Lymphocytes # 1.4 10*3/uL (1.4-4.0); Lymphocytes % 14.6 % (21.2-54.2); Mean Corpuscular HGB Conc 30.5 GM/DL (32-36); Mean Corpuscular Volume 86.3 FL (87-102); Mean Platelet Volume 8.1 FL (9.6-12.0); Monocytes # 0.8 10*3/uL (0.11-0.8); Neutrophils % 73.5 % (38.7-73.9); Platelet Count 725 T/CUMM (130-400); Red Blood Count 2.77 MC/CUMM (3.8-5.5); Red Cell Distribution Width 14.9 % (9.3-17.3); White Blood Count 9.3 T/CUMM (4-12)
[2021-11-15 05:46] LABS: Calcium 8.1 MG/DL (8.5-10.1); Osmolality,Calculated 282.4 MOS/KG (273-304); Potassium 4.2 MMOL/L (3.5-5.1)
[2021-11-15] MEDS: GLIMEPIRIDE 2 MG TABLET PO SCH (09:56)
[2021-11-15] MEDS: CHOLECALCIFEROL 5,000 UNIT TABLET PO SCH (09:56)
[2021-11-15] MEDS: sitaGLIPtin 100 MG TABLET PO SCH (09:56)
[2021-11-15] MEDS: IRON (CARBONYL)/VIT C/B12/FA TABLET PO SCH (09:56)
[2021-11-15] MEDS: MULTIVITAMIN (BEROCCA) TABLET PO SCH (09:56)
[2021-11-15] MEDS: lisinopriL 20 MG TABLET PO SCH (09:56)
[2021-11-15] MEDS: oxyCODONE ER 10 MG TABLET PO SCH ×2 (09:57→20:35)
[2021-11-15] MEDS: ONDANSETRON 4 MG/2 ML VIAL IV PRN (09:57)
[2021-11-15] MEDS: DAPAGLIFLOZIN 10 MG TABLET PO SCH (09:57)
[2021-11-15] MEDS: cefTRIAXone 2,000 MG in SODIUM CHLORIDE 0.9% 100 ML IV SCH (09:58)
[2021-11-15] MEDS: NICOTINE 21 MG/24 HR PATCH TRANSDERM SCH (09:59)
[2021-11-15] MEDS ORDERED: TUBERCULIN SKIN TEST 0.1 ML SYRINGE INTRADERM ONE (11:00)
[2021-11-15] MEDS: POLYETHYLENE GLYCOL POWDER 17 GM PACK PO SCH ×2 (14:28→20:35)
[2021-11-15] MEDS: DOCUSATE SODIUM 100 MG CAPSULE PO SCH ×2 (14:28→20:35)
[2021-11-15] MEDS: PANTOPRAZOLE 40 MG TABLET PO SCH (14:48)
[2021-11-15] MEDS: MENTHOL/ZINC OXIDE OINT 71 GM JAR TOP SCH (14:50)
[2021-11-15] MEDS: ENOXAPARIN 40 MG/0.4 ML SYRINGE SUBCUT SCH (17:28)
[2021-11-15] MEDS: SULFAMETHOX/TRIMETHOPRIM 800-160 MG TABLET PO SCH (17:29)
[2021-11-15] MEDS: buPROPion SR 100 MG TABLET PO SCH (20:35)
[2021-11-16] MEDS: INSULIN REGULAR 100 UNIT/ML SUBCUT SCH ×6 (00:15→21:01)
[2021-11-16 05:24] LABS: Basophils % 0.2 % (0.0-0.8); Eosinophils # 0.1 10*3/uL (0.0-0.87); Eosinophils % 1.2 % (0.00-10.9); Hematocrit 26.8 VOL% (42.0-52.0); Hemoglobin 8.2 GM/DL (14.0-18.0); Immature Granulocytes % 1.1 %; Lymphocytes # 1.5 10*3/uL (1.4-4.0); Lymphocytes % 15.8 % (21.2-54.2); Mean Corpuscular HGB Conc 30.6 GM/DL (32-36); Monocytes # 0.8 10*3/uL (0.11-0.8); Monocytes % 8.8 % (1.7-12.7); Neutrophils % 72.9 % (38.7-73.9); Platelet Count 765 T/CUMM (130-400); Red Blood Count 3.08 MC/CUMM (3.8-5.5); Red Cell Distribution Width 14.8 % (9.3-17.3); White Blood Count 9.3 T/CUMM (4-12)
[2021-11-16 05:55] LABS: Calcium 8.8 MG/DL (8.5-10.1); Osmolality,Calculated 283.3 MOS/KG (273-304); Potassium 4.5 MMOL/L (3.5-5.1)
[2021-11-16] MEDS: PANTOPRAZOLE 40 MG TABLET PO SCH (09:03)
[2021-11-16] MEDS: SULFAMETHOX/TRIMETHOPRIM 800-160 MG TABLET PO SCH ×2 (09:03→17:00)
[2021-11-16] MEDS: GLIMEPIRIDE 2 MG TABLET PO SCH (09:04)
[2021-11-16] MEDS: MULTIVITAMIN (BEROCCA) TABLET PO SCH (09:04)
[2021-11-16] MEDS: oxyCODONE ER 10 MG TABLET PO SCH ×2 (09:04→20:21)
[2021-11-16] MEDS: DAPAGLIFLOZIN 10 MG TABLET PO SCH (09:04)
[2021-11-16] MEDS: CHOLECALCIFEROL 5,000 UNIT TABLET PO SCH (09:04)
[2021-11-16] MEDS: NICOTINE 21 MG/24 HR PATCH TRANSDERM SCH (09:04)
[2021-11-16] MEDS: MENTHOL/ZINC OXIDE OINT 71 GM JAR TOP SCH (09:05)
[2021-11-16] MEDS: IRON (CARBONYL)/VIT C/B12/FA TABLET PO SCH (09:05)
[2021-11-16] MEDS: sitaGLIPtin 100 MG TABLET PO SCH (09:05)
[2021-11-16] MEDS: DOCUSATE SODIUM 100 MG CAPSULE PO SCH ×2 (11:45→20:21)
[2021-11-16] MEDS: POLYETHYLENE GLYCOL POWDER 17 GM PACK PO SCH ×2 (11:45→20:24)
[2021-11-16] MEDS: lisinopriL 20 MG TABLET PO SCH (13:16)
[2021-11-16] MEDS: ENOXAPARIN 40 MG/0.4 ML SYRINGE SUBCUT SCH (16:57)
[2021-11-16] MEDS: buPROPion SR 100 MG TABLET PO SCH (20:20)
[2021-11-17] MEDS: INSULIN REGULAR 100 UNIT/ML SUBCUT SCH ×6 (05:18→20:27)
[2021-11-17 05:22] LABS: Basophils % 0.3 % (0.0-0.8); Eosinophils # 0.1 10*3/uL (0.0-0.87); Hematocrit 23.2 VOL% (42.0-52.0); Hemoglobin 7.2 GM/DL (14.0-18.0); Immature Granulocytes % 1.6 %; Immature Granulocytes Absolute 0.17 #; Lymphocytes # 1.7 10*3/uL (1.4-4.0); Lymphocytes % 16.2 % (21.2-54.2); Mean Corpuscular Volume 85.6 FL (87-102); Monocytes # 0.8 10*3/uL (0.11-0.8); Monocytes % 7.4 % (1.7-12.7); Neutrophils % 73.5 % (38.7-73.9); Platelet Count 657 T/CUMM (130-400); Red Blood Count 2.71 MC/CUMM (3.8-5.5); Red Cell Distribution Width 14.8 % (9.3-17.3); White Blood Count 10.4 T/CUMM (4-12)
[2021-11-17 05:42] LABS: Calcium 8.8 MG/DL (8.5-10.1); Osmolality,Calculated 283.3 MOS/KG (273-304); Potassium 3.9 MMOL/L (3.5-5.1)
[2021-11-17] MEDS: PANTOPRAZOLE 40 MG TABLET PO SCH ×2 (07:58→11:05)
[2021-11-17] MEDS: MULTIVITAMIN (BEROCCA) TABLET PO SCH ×2 (07:58→11:04)
[2021-11-17] MEDS: DAPAGLIFLOZIN 10 MG TABLET PO SCH ×2 (07:58→11:04)
[2021-11-17] MEDS: SULFAMETHOX/TRIMETHOPRIM 800-160 MG TABLET PO SCH ×2 (07:58→16:00)
[2021-11-17] MEDS: DOCUSATE SODIUM 100 MG CAPSULE PO SCH ×3 (07:58→20:26)
[2021-11-17] MEDS: GLIMEPIRIDE 2 MG TABLET PO SCH (07:58)
[2021-11-17] MEDS: CHOLECALCIFEROL 5,000 UNIT TABLET PO SCH ×2 (07:58→11:05)
[2021-11-17] MEDS: NICOTINE 21 MG/24 HR PATCH TRANSDERM SCH ×2 (07:58→11:04)
[2021-11-17] MEDS: sitaGLIPtin 100 MG TABLET PO SCH ×2 (07:59→11:04)
[2021-11-17] MEDS: IRON (CARBONYL)/VIT C/B12/FA TABLET PO SCH ×2 (07:59→11:04)
[2021-11-17] MEDS: oxyCODONE ER 10 MG TABLET PO SCH ×3 (07:59→20:27)
[2021-11-17] MEDS: lisinopriL 20 MG TABLET PO SCH (09:01)
[2021-11-17] MEDS: POLYETHYLENE GLYCOL POWDER 17 GM PACK PO SCH ×2 (11:04→20:27)
[2021-11-17] MEDS: MENTHOL/ZINC OXIDE OINT 71 GM JAR TOP SCH (11:05)
[2021-11-17] MEDS: ENOXAPARIN 40 MG/0.4 ML SYRINGE SUBCUT SCH (15:58)
[2021-11-17] MEDS: buPROPion SR 100 MG TABLET PO SCH (20:26)
[2021-11-18] MEDS: INSULIN REGULAR 100 UNIT/ML SUBCUT SCH ×6 (01:14→22:11)
[2021-11-18 05:55] LABS: Basophils % 0.3 % (0.0-0.8); Eosinophils # 0.2 10*3/uL (0.0-0.87); Eosinophils % 1.9 % (0.00-10.9); Hematocrit 22.4 VOL% (42.0-52.0); Hemoglobin 6.8 GM/DL (14.0-18.0); Immature Granulocytes % 1.3 %; Immature Granulocytes Absolute 0.14 #; Lymphocytes # 1.6 10*3/uL (1.4-4.0); Lymphocytes % 15.2 % (21.2-54.2); Mean Corpuscular HGB Conc 30.4 GM/DL (32-36); Mean Corpuscular Volume 86.8 FL (87-102); Mean Platelet Volume 8.2 FL (9.6-12.0); Monocytes # 0.9 10*3/uL (0.11-0.8); Monocytes % 8.5 % (1.7-12.7); Neutrophils % 72.8 % (38.7-73.9); Platelet Count 621 T/CUMM (130-400); Red Blood Count 2.58 MC/CUMM (3.8-5.5); Red Cell Distribution Width 14.7 % (9.3-17.3); White Blood Count 10.6 T/CUMM (4-12)
[2021-11-18 06:25] LABS: Calcium 8.5 MG/DL (8.5-10.1); Osmolality,Calculated 283.4 MOS/KG (273-304); Potassium 3.9 MMOL/L (3.5-5.1)
[2021-11-18] MEDS ORDERED: SODIUM CHLORIDE 0.9% 1,000 ML IV PRN (08:07)
[2021-11-18] MEDS: sitaGLIPtin 100 MG TABLET PO SCH (08:55)
[2021-11-18] MEDS: DOCUSATE SODIUM 100 MG CAPSULE PO SCH ×2 (08:55→21:03)
[2021-11-18] MEDS: DAPAGLIFLOZIN 10 MG TABLET PO SCH (08:55)
[2021-11-18] MEDS: IRON (CARBONYL)/VIT C/B12/FA TABLET PO SCH (08:55)
[2021-11-18] MEDS: CHOLECALCIFEROL 5,000 UNIT TABLET PO SCH (08:55)
[2021-11-18] MEDS: PANTOPRAZOLE 40 MG TABLET PO SCH (08:55)
[2021-11-18] MEDS: MULTIVITAMIN (BEROCCA) TABLET PO SCH (08:56)
[2021-11-18] MEDS: POLYETHYLENE GLYCOL POWDER 17 GM PACK PO SCH ×2 (08:56→21:03)
[2021-11-18] MEDS: lisinopriL 20 MG TABLET PO SCH (08:56)
[2021-11-18] MEDS: SULFAMETHOX/TRIMETHOPRIM 800-160 MG TABLET PO SCH ×2 (08:56→17:12)
[2021-11-18] MEDS: GLIMEPIRIDE 2 MG TABLET PO SCH (08:56)
[2021-11-18] MEDS: oxyCODONE ER 10 MG TABLET PO SCH ×2 (08:56→21:03)
[2021-11-18] MEDS: NICOTINE 21 MG/24 HR PATCH TRANSDERM SCH (08:57)
[2021-11-18] MEDS: MENTHOL/ZINC OXIDE OINT 71 GM JAR TOP SCH (08:58)
[2021-11-18] MEDS: ENOXAPARIN 40 MG/0.4 ML SYRINGE SUBCUT SCH (17:12)
[2021-11-18] MEDS: buPROPion SR 100 MG TABLET PO SCH (21:03)
[2021-11-19] MEDS: INSULIN REGULAR 100 UNIT/ML SUBCUT SCH ×6 (01:40→20:23)
[2021-11-19 02:45] LABS: Hematocrit 27.3 VOL% (42.0-52.0); Hemoglobin 8.8 GM/DL (14.0-18.0)
[2021-11-19] MEDS: cefTRIAXone 1,000 MG in SODIUM CHLORIDE 0.9% 100 ML IV SCH (09:20)
[2021-11-19] MEDS: lisinopriL 20 MG TABLET PO SCH (09:20)
[2021-11-19] MEDS: sitaGLIPtin 100 MG TABLET PO SCH (09:21)
[2021-11-19] MEDS: DAPAGLIFLOZIN 10 MG TABLET PO SCH (09:21)
[2021-11-19] MEDS: PANTOPRAZOLE 40 MG TABLET PO SCH (09:21)
[2021-11-19] MEDS: IRON (CARBONYL)/VIT C/B12/FA TABLET PO SCH (09:21)
[2021-11-19] MEDS: NICOTINE 21 MG/24 HR PATCH TRANSDERM SCH (09:21)
[2021-11-19] MEDS: oxyCODONE ER 10 MG TABLET PO SCH ×2 (09:22→20:24)
[2021-11-19] MEDS: DOCUSATE SODIUM 100 MG CAPSULE PO SCH ×2 (09:22→20:24)
[2021-11-19] MEDS: MULTIVITAMIN (BEROCCA) TABLET PO SCH (09:22)
[2021-11-19] MEDS: CHOLECALCIFEROL 5,000 UNIT TABLET PO SCH (09:22)
[2021-11-19] MEDS: MENTHOL/ZINC OXIDE OINT 71 GM JAR TOP SCH (09:23)
[2021-11-19] MEDS: POLYETHYLENE GLYCOL POWDER 17 GM PACK PO SCH ×2 (09:23→20:24)
[2021-11-19] MEDS: GLIMEPIRIDE 2 MG TABLET PO SCH (09:24)
[2021-11-19] MEDS: SULFAMETHOX/TRIMETHOPRIM 800-160 MG TABLET PO SCH (09:39)
[2021-11-19] MEDS: VANCOMYCIN INJ 1,000 MG in SODIUM CHLORIDE 0.9% 250 ML IV SCH (11:48)
[2021-11-19] MEDS: ENOXAPARIN 40 MG/0.4 ML SYRINGE SUBCUT SCH (16:59)
[2021-11-19] MEDS: buPROPion SR 100 MG TABLET PO SCH (20:23)
[2021-11-20] MEDS: INSULIN REGULAR 100 UNIT/ML SUBCUT SCH ×7 (00:35→23:22)
[2021-11-20] MEDS: cefTRIAXone 1,000 MG in SODIUM CHLORIDE 0.9% 100 ML IV SCH (09:14)
[2021-11-20] MEDS: DAPAGLIFLOZIN 10 MG TABLET PO SCH (09:14)
[2021-11-20] MEDS: MULTIVITAMIN (BEROCCA) TABLET PO SCH (09:14)
[2021-11-20] MEDS: CHOLECALCIFEROL 5,000 UNIT TABLET PO SCH (09:15)
[2021-11-20] MEDS: IRON (CARBONYL)/VIT C/B12/FA TABLET PO SCH (09:15)
[2021-11-20] MEDS: GLIMEPIRIDE 2 MG TABLET PO SCH (09:15)
[2021-11-20] MEDS: sitaGLIPtin 100 MG TABLET PO SCH (09:15)
[2021-11-20] MEDS: lisinopriL 20 MG TABLET PO SCH (09:15)
[2021-11-20] MEDS: PANTOPRAZOLE 40 MG TABLET PO SCH (09:15)
[2021-11-20] MEDS: MENTHOL/ZINC OXIDE OINT 71 GM JAR TOP SCH (09:19)
[2021-11-20] MEDS: POLYETHYLENE GLYCOL POWDER 17 GM PACK PO SCH ×2 (09:38→20:59)
[2021-11-20] MEDS: DOCUSATE SODIUM 100 MG CAPSULE PO SCH ×2 (09:38→20:59)
[2021-11-20] MEDS: NICOTINE 21 MG/24 HR PATCH TRANSDERM SCH (09:38)
[2021-11-20] MEDS: VANCOMYCIN INJ 1,000 MG in SODIUM CHLORIDE 0.9% 250 ML IV SCH (10:19)
[2021-11-20] MEDS: ENOXAPARIN 40 MG/0.4 ML SYRINGE SUBCUT SCH (16:44)
[2021-11-20] MEDS: buPROPion SR 100 MG TABLET PO SCH (20:59)
[2021-11-21] MEDS: INSULIN REGULAR 100 UNIT/ML SUBCUT SCH ×5 (03:49→20:57)
[2021-11-21 05:15] LABS: Basophils % 0.3 % (0.0-0.8); Eosinophils # 0.2 10*3/uL (0.0-0.87); Eosinophils % 1.8 % (0.00-10.9); Hematocrit 28.6 VOL% (42.0-52.0); Hemoglobin 8.8 GM/DL (14.0-18.0); Immature Granulocytes % 2.3 %; Immature Granulocytes Absolute 0.24 #; Lymphocytes # 1.6 10*3/uL (1.4-4.0); Lymphocytes % 15.1 % (21.2-54.2); Mean Corpuscular HGB Conc 30.8 GM/DL (32-36); Mean Corpuscular Volume 85.6 FL (87-102); Mean Platelet Volume 8.2 FL (9.6-12.0); Monocytes # 1.1 10*3/uL (0.11-0.8); Monocytes % 10.4 % (1.7-12.7); Neutrophils % 70.1 % (38.7-73.9); Platelet Count 535 T/CUMM (130-400); Red Blood Count 3.34 MC/CUMM (3.8-5.5); Red Cell Distribution Width 14.4 % (9.3-17.3); White Blood Count 10.4 T/CUMM (4-12)
[2021-11-21 05:43] LABS: Calcium 8.7 MG/DL (8.5-10.1); Osmolality,Calculated 282.7 MOS/KG (273-304)
[2021-11-21] MEDS: MULTIVITAMIN (BEROCCA) TABLET PO SCH (09:36)
[2021-11-21] MEDS: IRON (CARBONYL)/VIT C/B12/FA TABLET PO SCH (09:36)
[2021-11-21] MEDS: CHOLECALCIFEROL 5,000 UNIT TABLET PO SCH (09:36)
[2021-11-21] MEDS: PANTOPRAZOLE 40 MG TABLET PO SCH (09:36)
[2021-11-21] MEDS: sitaGLIPtin 100 MG TABLET PO SCH (09:36)
[2021-11-21] MEDS: DAPAGLIFLOZIN 10 MG TABLET PO SCH (09:36)
[2021-11-21] MEDS: GLIMEPIRIDE 2 MG TABLET PO SCH (09:36)
[2021-11-21] MEDS: cefTRIAXone 1,000 MG in SODIUM CHLORIDE 0.9% 100 ML IV SCH (09:37)
[2021-11-21] MEDS: MENTHOL/ZINC OXIDE OINT 71 GM JAR TOP SCH (09:37)
[2021-11-21] MEDS: lisinopriL 20 MG TABLET PO SCH (09:37)
[2021-11-21] MEDS: VANCOMYCIN INJ 1,000 MG in SODIUM CHLORIDE 0.9% 250 ML IV SCH (09:40)
[2021-11-21] MEDS: POLYETHYLENE GLYCOL POWDER 17 GM PACK PO SCH ×2 (10:14→20:29)
[2021-11-21] MEDS: DOCUSATE SODIUM 100 MG CAPSULE PO SCH ×2 (10:14→20:29)
[2021-11-21] MEDS: NICOTINE 21 MG/24 HR PATCH TRANSDERM SCH (10:15)
[2021-11-21] MEDS: ENOXAPARIN 40 MG/0.4 ML SYRINGE SUBCUT SCH (15:52)
[2021-11-21] MEDS: buPROPion SR 100 MG TABLET PO SCH (20:29)
[2021-11-21] MEDS: GABAPENTIN 300 MG CAPSULE PO SCH (20:29)
[2021-11-22] MEDS: INSULIN REGULAR 100 UNIT/ML SUBCUT SCH ×6 (00:18→23:06)
[2021-11-22 05:08] LABS: Basophils % 0.1 % (0.0-0.8); Eosinophils # 0.2 10*3/uL (0.0-0.87); Eosinophils % 1.6 % (0.00-10.9); Hematocrit 27.9 VOL% (42.0-52.0); Hemoglobin 8.7 GM/DL (14.0-18.0); Immature Granulocytes % 2.5 %; Immature Granulocytes Absolute 0.23 #; Lymphocytes # 1.8 10*3/uL (1.4-4.0); Lymphocytes % 19.6 % (21.2-54.2); Mean Corpuscular HGB Conc 31.2 GM/DL (32-36); Mean Corpuscular Volume 85.3 FL (87-102); Mean Platelet Volume 8.5 FL (9.6-12.0); Monocytes % 10.6 % (1.7-12.7); Neutrophils % 65.6 % (38.7-73.9); Platelet Count 595 T/CUMM (130-400); Red Blood Count 3.27 MC/CUMM (3.8-5.5); Red Cell Distribution Width 14.5 % (9.3-17.3); White Blood Count 9.3 T/CUMM (4-12)
[2021-11-22 05:32] LABS: Calcium 8.8 MG/DL (8.5-10.1); Osmolality,Calculated 281.5 MOS/KG (273-304); Potassium 4.1 MMOL/L (3.5-5.1)
[2021-11-22] MEDS: lisinopriL 20 MG TABLET PO SCH (08:09)
[2021-11-22] MEDS: sitaGLIPtin 100 MG TABLET PO SCH (08:09)
[2021-11-22] MEDS: DOCUSATE SODIUM 100 MG CAPSULE PO SCH ×2 (08:09→20:27)
[2021-11-22] MEDS: CHOLECALCIFEROL 5,000 UNIT TABLET PO SCH (08:09)
[2021-11-22] MEDS: MULTIVITAMIN (BEROCCA) TABLET PO SCH (08:09)
[2021-11-22] MEDS: PANTOPRAZOLE 40 MG TABLET PO SCH (08:09)
[2021-11-22] MEDS: IRON (CARBONYL)/VIT C/B12/FA TABLET PO SCH (08:10)
[2021-11-22] MEDS: POLYETHYLENE GLYCOL POWDER 17 GM PACK PO SCH ×2 (08:10→20:27)
[2021-11-22] MEDS: NICOTINE 21 MG/24 HR PATCH TRANSDERM SCH (08:10)
[2021-11-22] MEDS: GABAPENTIN 300 MG CAPSULE PO SCH ×2 (08:10→20:29)
[2021-11-22] MEDS: DAPAGLIFLOZIN 10 MG TABLET PO SCH (08:10)
[2021-11-22] MEDS: MENTHOL/ZINC OXIDE OINT 71 GM JAR TOP SCH (08:10)
[2021-11-22] MEDS: GLIMEPIRIDE 2 MG TABLET PO SCH (08:15)
[2021-11-22] MEDS: cefTRIAXone 1,000 MG in SODIUM CHLORIDE 0.9% 100 ML IV SCH (15:10)
[2021-11-22] MEDS: VANCOMYCIN INJ 1,000 MG in SODIUM CHLORIDE 0.9% 250 ML IV SCH (16:00)
[2021-11-22] MEDS: ENOXAPARIN 40 MG/0.4 ML SYRINGE SUBCUT SCH (17:18)
[2021-11-22] MEDS: buPROPion SR 100 MG TABLET PO SCH (20:28)
[2021-11-23] MEDS: INSULIN REGULAR 100 UNIT/ML SUBCUT SCH ×6 (01:28→21:18)
[2021-11-23] MEDS: IRON (CARBONYL)/VIT C/B12/FA TABLET PO SCH (09:11)
[2021-11-23] MEDS: DAPAGLIFLOZIN 10 MG TABLET PO SCH (09:11)
[2021-11-23] MEDS: DOCUSATE SODIUM 100 MG CAPSULE PO SCH ×2 (09:11→21:19)
[2021-11-23] MEDS: MULTIVITAMIN (BEROCCA) TABLET PO SCH (09:11)
[2021-11-23] MEDS: GLIMEPIRIDE 2 MG TABLET PO SCH (09:11)
[2021-11-23] MEDS: PANTOPRAZOLE 40 MG TABLET PO SCH (09:11)
[2021-11-23] MEDS: MENTHOL/ZINC OXIDE OINT 71 GM JAR TOP SCH (09:12)
[2021-11-23] MEDS: sitaGLIPtin 100 MG TABLET PO SCH (09:12)
[2021-11-23] MEDS: POLYETHYLENE GLYCOL POWDER 17 GM PACK PO SCH (09:12)
[2021-11-23] MEDS: CHOLECALCIFEROL 5,000 UNIT TABLET PO SCH (09:12)
[2021-11-23] MEDS: GABAPENTIN 300 MG CAPSULE PO SCH ×2 (09:12→21:19)
[2021-11-23] MEDS: NICOTINE 21 MG/24 HR PATCH TRANSDERM SCH (09:12)
[2021-11-23] MEDS: lisinopriL 20 MG TABLET PO SCH (09:12)
[2021-11-23] MEDS: cefTRIAXone 1,000 MG in SODIUM CHLORIDE 0.9% 100 ML IV SCH (15:15)
[2021-11-23] MEDS: VANCOMYCIN INJ 1,000 MG in SODIUM CHLORIDE 0.9% 250 ML IV SCH (15:50)
[2021-11-23] MEDS: ENOXAPARIN 40 MG/0.4 ML SYRINGE SUBCUT SCH (17:15)
[2021-11-23] MEDS: buPROPion SR 100 MG TABLET PO SCH (21:19)
[2021-11-24] MEDS: POLYETHYLENE GLYCOL POWDER 17 GM PACK PO SCH ×3 (04:09→20:49)
[2021-11-24] MEDS: INSULIN REGULAR 100 UNIT/ML SUBCUT SCH ×6 (04:55→20:49)
[2021-11-24] MEDS: CHOLECALCIFEROL 5,000 UNIT TABLET PO SCH (09:06)
[2021-11-24] MEDS: GLIMEPIRIDE 2 MG TABLET PO SCH (09:06)
[2021-11-24] MEDS: IRON (CARBONYL)/VIT C/B12/FA TABLET PO SCH (09:07)
[2021-11-24] MEDS: DAPAGLIFLOZIN 10 MG TABLET PO SCH (09:07)
[2021-11-24] MEDS: MULTIVITAMIN (BEROCCA) TABLET PO SCH (09:07)
[2021-11-24] MEDS: PANTOPRAZOLE 40 MG TABLET PO SCH (09:08)
[2021-11-24] MEDS: sitaGLIPtin 100 MG TABLET PO SCH (09:08)
[2021-11-24] MEDS: DOCUSATE SODIUM 100 MG CAPSULE PO SCH ×2 (09:08→20:49)
[2021-11-24] MEDS: GABAPENTIN 300 MG CAPSULE PO SCH ×2 (09:08→20:50)
[2021-11-24] MEDS: lisinopriL 20 MG TABLET PO SCH (09:09)
[2021-11-24] MEDS: NICOTINE 21 MG/24 HR PATCH TRANSDERM SCH (09:12)
[2021-11-24] MEDS: MENTHOL/ZINC OXIDE OINT 71 GM JAR TOP SCH (09:25)
[2021-11-24] MEDS: FLUCONAZOLE 100 MG TABLET PO SCH (15:24)
[2021-11-24] MEDS: ENOXAPARIN 40 MG/0.4 ML SYRINGE SUBCUT SCH (15:24)
[2021-11-24] MEDS: cefTRIAXone 1,000 MG in SODIUM CHLORIDE 0.9% 100 ML IV SCH (15:29)
[2021-11-24] MEDS: VANCOMYCIN INJ 1,000 MG in SODIUM CHLORIDE 0.9% 250 ML IV SCH (16:44)
[2021-11-24] MEDS: NYSTATIN/TRIAMCINOLONE CREAM 15 GM TUBE TOP SCH (20:49)
[2021-11-24] MEDS: INSULIN GLARGINE 100 UNIT/ML SUBCUT SCH (20:49)
[2021-11-24] MEDS: buPROPion SR 100 MG TABLET PO SCH (20:49)
[2021-11-25] MEDS: INSULIN REGULAR 100 UNIT/ML SUBCUT SCH ×4 (08:06→20:33)
[2021-11-25] MEDS: GLIMEPIRIDE 2 MG TABLET PO SCH (08:06)
[2021-11-25] MEDS: DAPAGLIFLOZIN 10 MG TABLET PO SCH (08:07)
[2021-11-25] MEDS: IRON (CARBONYL)/VIT C/B12/FA TABLET PO SCH (08:07)
[2021-11-25] MEDS: lisinopriL 20 MG TABLET PO SCH (08:08)
[2021-11-25] MEDS: PANTOPRAZOLE 40 MG TABLET PO SCH (08:08)
[2021-11-25] MEDS: FLUCONAZOLE 100 MG TABLET PO SCH (08:08)
[2021-11-25] MEDS: DOCUSATE SODIUM 100 MG CAPSULE PO SCH ×2 (08:08→20:34)
[2021-11-25] MEDS: CHOLECALCIFEROL 5,000 UNIT TABLET PO SCH (08:09)
[2021-11-25] MEDS: sitaGLIPtin 100 MG TABLET PO SCH (08:09)
[2021-11-25] MEDS: GABAPENTIN 300 MG CAPSULE PO SCH ×2 (08:09→20:34)
[2021-11-25] MEDS: MULTIVITAMIN (BEROCCA) TABLET PO SCH (08:09)
[2021-11-25] MEDS: MENTHOL/ZINC OXIDE OINT 71 GM JAR TOP SCH (08:09)
[2021-11-25] MEDS: NICOTINE 21 MG/24 HR PATCH TRANSDERM SCH (08:10)
[2021-11-25] MEDS: NYSTATIN/TRIAMCINOLONE CREAM 15 GM TUBE TOP SCH ×2 (08:10→20:39)
[2021-11-25] MEDS: POLYETHYLENE GLYCOL POWDER 17 GM PACK PO SCH ×2 (08:13→20:34)
[2021-11-25] MEDS: DESITIN 4OZ/NYSTATIN 15 GRAM MIXTURE PASTE TOP SCH ×2 (12:59→20:40)
[2021-11-25] MEDS: DICLOFENAC 1% GEL 100 GM TUBE TOP SCH ×2 (14:09→20:40)
[2021-11-25] MEDS: cefTRIAXone 1,000 MG in SODIUM CHLORIDE 0.9% 100 ML IV SCH (15:33)
[2021-11-25] MEDS: ENOXAPARIN 40 MG/0.4 ML SYRINGE SUBCUT SCH (15:34)
[2021-11-25] MEDS: VANCOMYCIN INJ 1,250 MG in SODIUM CHLORIDE 0.9% 250 ML IV SCH (16:15)
[2021-11-25] MEDS: INSULIN GLARGINE 100 UNIT/ML SUBCUT SCH (20:33)
[2021-11-25] MEDS: buPROPion SR 100 MG TABLET PO SCH (20:35)
[2021-11-26] MEDS: GABAPENTIN 300 MG CAPSULE PO SCH ×2 (09:08→20:53)
[2021-11-26] MEDS: IRON (CARBONYL)/VIT C/B12/FA TABLET PO SCH (09:08)
[2021-11-26] MEDS: DOCUSATE SODIUM 100 MG CAPSULE PO SCH ×2 (09:08→20:53)
[2021-11-26] MEDS: sitaGLIPtin 100 MG TABLET PO SCH (09:08)
[2021-11-26] MEDS: DICLOFENAC 1% GEL 100 GM TUBE TOP SCH ×3 (09:08→20:55)
[2021-11-26] MEDS: MULTIVITAMIN (BEROCCA) TABLET PO SCH (09:08)
[2021-11-26] MEDS: PANTOPRAZOLE 40 MG TABLET PO SCH (09:08)
[2021-11-26] MEDS: lisinopriL 20 MG TABLET PO SCH (09:08)
[2021-11-26] MEDS: INSULIN REGULAR 100 UNIT/ML SUBCUT SCH ×4 (09:09→20:54)
[2021-11-26] MEDS: GLIMEPIRIDE 2 MG TABLET PO SCH (09:09)
[2021-11-26] MEDS: CHOLECALCIFEROL 5,000 UNIT TABLET PO SCH (09:09)
[2021-11-26] MEDS: NICOTINE 21 MG/24 HR PATCH TRANSDERM SCH (09:09)
[2021-11-26] MEDS: FLUCONAZOLE 100 MG TABLET PO SCH (09:09)
[2021-11-26] MEDS: DESITIN 4OZ/NYSTATIN 15 GRAM MIXTURE PASTE TOP SCH ×2 (09:09→20:55)
[2021-11-26] MEDS: DAPAGLIFLOZIN 10 MG TABLET PO SCH (09:09)
[2021-11-26] MEDS: NYSTATIN/TRIAMCINOLONE CREAM 15 GM TUBE TOP SCH ×2 (09:10→20:55)
[2021-11-26] MEDS: MENTHOL/ZINC OXIDE OINT 71 GM JAR TOP SCH (09:10)
[2021-11-26] MEDS: POLYETHYLENE GLYCOL POWDER 17 GM PACK PO SCH ×2 (09:12→20:54)
[2021-11-26] MEDS: cefTRIAXone 1,000 MG in SODIUM CHLORIDE 0.9% 100 ML IV SCH (14:13)
[2021-11-26] MEDS: VANCOMYCIN INJ 1,250 MG in SODIUM CHLORIDE 0.9% 250 ML IV SCH (15:15)
[2021-11-26] MEDS: ENOXAPARIN 40 MG/0.4 ML SYRINGE SUBCUT SCH (15:16)
[2021-11-26] MEDS: INSULIN GLARGINE 100 UNIT/ML SUBCUT SCH (20:53)
[2021-11-26] MEDS: buPROPion SR 100 MG TABLET PO SCH (20:53)
[2021-11-27 04:59] LABS: Basophils % 0.2 % (0.0-0.8); Eosinophils # 0.2 10*3/uL (0.0-0.87); Eosinophils % 1.8 % (0.00-10.9); Hematocrit 24.3 VOL% (42.0-52.0); Hemoglobin 7.6 GM/DL (14.0-18.0); Immature Granulocytes % 1.3 %; Immature Granulocytes Absolute 0.15 #; Lymphocytes # 2.1 10*3/uL (1.4-4.0); Lymphocytes % 18.4 % (21.2-54.2); Mean Corpuscular HGB Conc 31.3 GM/DL (32-36); Mean Corpuscular Volume 85.9 FL (87-102); Monocytes # 1.1 10*3/uL (0.11-0.8); Neutrophils % 68.3 % (38.7-73.9); Platelet Count 421 T/CUMM (130-400); Red Blood Count 2.83 MC/CUMM (3.8-5.5); Red Cell Distribution Width 14.7 % (9.3-17.3); White Blood Count 11.2 T/CUMM (4-12)
[2021-11-27 05:15] LABS: Calcium 7.8 MG/DL (8.5-10.1); Osmolality,Calculated 291.4 MOS/KG (273-304); Potassium 4.1 MMOL/L (3.5-5.1)
[2021-11-27] MEDS: INSULIN REGULAR 100 UNIT/ML SUBCUT SCH ×4 (07:06→22:16)
[2021-11-27] MEDS: DICLOFENAC 1% GEL 100 GM TUBE TOP SCH ×3 (09:31→22:25)
[2021-11-27] MEDS: NICOTINE 21 MG/24 HR PATCH TRANSDERM SCH (09:33)
[2021-11-27] MEDS: DOCUSATE SODIUM 100 MG CAPSULE PO SCH ×2 (09:34→22:17)
[2021-11-27] MEDS: FLUCONAZOLE 100 MG TABLET PO SCH (09:34)
[2021-11-27] MEDS: MULTIVITAMIN (BEROCCA) TABLET PO SCH (09:34)
[2021-11-27] MEDS: CHOLECALCIFEROL 5,000 UNIT TABLET PO SCH (09:34)
[2021-11-27] MEDS: lisinopriL 20 MG TABLET PO SCH (09:34)
[2021-11-27] MEDS: IRON (CARBONYL)/VIT C/B12/FA TABLET PO SCH (09:34)
[2021-11-27] MEDS: PANTOPRAZOLE 40 MG TABLET PO SCH (09:35)
[2021-11-27] MEDS: GABAPENTIN 300 MG CAPSULE PO SCH ×2 (09:35→22:24)
[2021-11-27] MEDS: MENTHOL/ZINC OXIDE OINT 71 GM JAR TOP SCH (09:35)
[2021-11-27] MEDS: POLYETHYLENE GLYCOL POWDER 17 GM PACK PO SCH ×2 (09:35→22:20)
[2021-11-27] MEDS: DESITIN 4OZ/NYSTATIN 15 GRAM MIXTURE PASTE TOP SCH ×2 (09:36→22:27)
[2021-11-27] MEDS: NYSTATIN/TRIAMCINOLONE CREAM 15 GM TUBE TOP SCH ×2 (09:36→22:25)
[2021-11-27 10:49] LABS: % Iron Saturation 13.4 % (18-50); Ferritin 586.3 ng/mL (26-388)
[2021-11-27 11:59] LABS: Folate > 24.00 NG/ML (5.38-24.0); Vitamin B12 566 PG/ML (211-911)
[2021-11-27] MEDS: FERRIC GLUCONATE COMPLEX 125 MG in SODIUM CHLORIDE 0.9% 100 ML IV SCH (14:45)
[2021-11-27] MEDS: cefTRIAXone 1,000 MG in SODIUM CHLORIDE 0.9% 100 ML IV SCH (14:46)
[2021-11-27] MEDS: ENOXAPARIN 40 MG/0.4 ML SYRINGE SUBCUT SCH (15:45)
[2021-11-27] MEDS: VANCOMYCIN INJ 1,250 MG in SODIUM CHLORIDE 0.9% 250 ML IV SCH (15:46)
[2021-11-27] MEDS: INSULIN GLARGINE 100 UNIT/ML SUBCUT SCH (22:17)
[2021-11-27] MEDS: buPROPion SR 100 MG TABLET PO SCH (22:24)
[2021-11-28 05:23] LABS: Basophils % 0.2 % (0.0-0.8); Eosinophils # 0.2 10*3/uL (0.0-0.87); Eosinophils % 1.7 % (0.00-10.9); Hematocrit 24.6 VOL% (42.0-52.0); Hemoglobin 7.6 GM/DL (14.0-18.0); Immature Granulocytes Absolute 0.19 #; Lymphocytes % 20.1 % (21.2-54.2); Mean Corpuscular HGB Conc 30.9 GM/DL (32-36); Mean Corpuscular Volume 84.2 FL (87-102); Mean Platelet Volume 10.8 FL (9.6-12.0); Monocytes # 1.1 10*3/uL (0.11-0.8); Platelet Count 278 T/CUMM (130-400); Red Blood Count 2.92 MC/CUMM (3.8-5.5); White Blood Count 9.7 T/CUMM (4-12)
[2021-11-28 06:15] LABS: Calcium 8.5 MG/DL (8.5-10.1); Osmolality,Calculated 285.1 MOS/KG (273-304); Potassium 4.6 MMOL/L (3.5-5.1)
[2021-11-28 07:19] LABS: Platelet Estimate Normal
[2021-11-28] MEDS: INSULIN REGULAR 100 UNIT/ML SUBCUT SCH ×4 (08:50→22:01)
[2021-11-28] MEDS: FERRIC GLUCONATE COMPLEX 125 MG in SODIUM CHLORIDE 0.9% 100 ML IV SCH (08:51)
[2021-11-28] MEDS: MULTIVITAMIN (BEROCCA) TABLET PO SCH (08:52)
[2021-11-28] MEDS: IRON (CARBONYL)/VIT C/B12/FA TABLET PO SCH (08:52)
[2021-11-28] MEDS: PANTOPRAZOLE 40 MG TABLET PO SCH (08:52)
[2021-11-28] MEDS: NICOTINE 21 MG/24 HR PATCH TRANSDERM SCH (08:52)
[2021-11-28] MEDS: FLUCONAZOLE 100 MG TABLET PO SCH (08:52)
[2021-11-28] MEDS: GABAPENTIN 300 MG CAPSULE PO SCH ×2 (08:52→21:59)
[2021-11-28] MEDS: CHOLECALCIFEROL 5,000 UNIT TABLET PO SCH (08:53)
[2021-11-28] MEDS: POLYETHYLENE GLYCOL POWDER 17 GM PACK PO SCH ×2 (08:53→21:57)
[2021-11-28] MEDS: lisinopriL 20 MG TABLET PO SCH (08:53)
[2021-11-28] MEDS: DOCUSATE SODIUM 100 MG CAPSULE PO SCH ×2 (08:53→21:57)
[2021-11-28] MEDS: DESITIN 4OZ/NYSTATIN 15 GRAM MIXTURE PASTE TOP SCH ×2 (08:53→22:08)
[2021-11-28] MEDS: MENTHOL/ZINC OXIDE OINT 71 GM JAR TOP SCH (08:53)
[2021-11-28] MEDS: NYSTATIN/TRIAMCINOLONE CREAM 15 GM TUBE TOP SCH ×2 (08:53→22:08)
[2021-11-28] MEDS: DICLOFENAC 1% GEL 100 GM TUBE TOP SCH ×3 (08:54→22:09)
[2021-11-28] MEDS: cefTRIAXone 1,000 MG in SODIUM CHLORIDE 0.9% 100 ML IV SCH (15:18)
[2021-11-28] MEDS: ENOXAPARIN 40 MG/0.4 ML SYRINGE SUBCUT SCH (15:19)
[2021-11-28] MEDS: VANCOMYCIN INJ 1,250 MG in SODIUM CHLORIDE 0.9% 250 ML IV SCH (16:30)
[2021-11-28] MEDS: buPROPion SR 100 MG TABLET PO SCH (21:58)
[2021-11-28] MEDS: INSULIN GLARGINE 100 UNIT/ML SUBCUT SCH (22:00)
[2021-11-29 06:26] LABS: Basophils % 0.2 % (0.0-0.8); Eosinophils # 0.1 10*3/uL (0.0-0.87); Eosinophils % 1.2 % (0.00-10.9); Hemoglobin 7.1 GM/DL (14.0-18.0); Lymphocytes % 20.9 % (21.2-54.2); Mean Corpuscular HGB Conc 29.6 GM/DL (32-36); Mean Platelet Volume 9.1 FL (9.6-12.0); Monocytes % 9.9 % (1.7-12.7); Neutrophils % 66.8 % (38.7-73.9); Platelet Count 512 T/CUMM (130-400); Red Blood Count 2.79 MC/CUMM (3.8-5.5); Red Cell Distribution Width 14.9 % (9.3-17.3); White Blood Count 9.7 T/CUMM (4-12)
[2021-11-29 06:54] LABS: Calcium 8.9 MG/DL (8.5-10.1); Osmolality,Calculated 288.5 MOS/KG (273-304); Potassium 4.6 MMOL/L (3.5-5.1)
[2021-11-29] MEDS: MULTIVITAMIN (BEROCCA) TABLET PO SCH (09:21)
[2021-11-29] MEDS: FLUCONAZOLE 100 MG TABLET PO SCH (09:22)
[2021-11-29] MEDS: PANTOPRAZOLE 40 MG TABLET PO SCH (09:22)
[2021-11-29] MEDS: DOCUSATE SODIUM 100 MG CAPSULE PO SCH ×2 (09:22→21:16)
[2021-11-29] MEDS: lisinopriL 20 MG TABLET PO SCH (09:22)
[2021-11-29] MEDS: GABAPENTIN 300 MG CAPSULE PO SCH ×2 (09:22→21:16)
[2021-11-29] MEDS: IRON (CARBONYL)/VIT C/B12/FA TABLET PO SCH (09:22)
[2021-11-29] MEDS: MENTHOL/ZINC OXIDE OINT 71 GM JAR TOP SCH (09:23)
[2021-11-29] MEDS: DICLOFENAC 1% GEL 100 GM TUBE TOP SCH ×3 (09:23→21:18)
[2021-11-29] MEDS: NYSTATIN/TRIAMCINOLONE CREAM 15 GM TUBE TOP SCH ×2 (09:23→21:17)
[2021-11-29] MEDS: POLYETHYLENE GLYCOL POWDER 17 GM PACK PO SCH ×2 (09:27→21:17)
[2021-11-29] MEDS: INSULIN REGULAR 100 UNIT/ML SUBCUT SCH ×4 (09:27→21:16)
[2021-11-29] MEDS: FERRIC GLUCONATE COMPLEX 125 MG in SODIUM CHLORIDE 0.9% 100 ML IV SCH (11:21)
[2021-11-29] MEDS: NICOTINE 21 MG/24 HR PATCH TRANSDERM SCH (11:25)
[2021-11-29] MEDS: DESITIN 4OZ/NYSTATIN 15 GRAM MIXTURE PASTE TOP SCH ×2 (11:26→21:17)
[2021-11-29] MEDS: CHOLECALCIFEROL 5,000 UNIT TABLET PO SCH (11:26)
[2021-11-29] MEDS: SULFAMETHOX/TRIMETHOPRIM 800-160 MG TABLET PO SCH ×2 (11:26→16:14)
[2021-11-29] MEDS: ENOXAPARIN 40 MG/0.4 ML SYRINGE SUBCUT SCH (16:14)
[2021-11-29] MEDS: buPROPion SR 100 MG TABLET PO SCH (21:16)
[2021-11-29] MEDS: INSULIN GLARGINE 100 UNIT/ML SUBCUT SCH (21:16)
[2021-11-30 06:54] LABS: Basophils % 0.1 % (0.0-0.8); Eosinophils # 0.1 10*3/uL (0.0-0.87); Eosinophils % 1.3 % (0.00-10.9); Hematocrit 24.2 VOL% (42.0-52.0); Hemoglobin 7.4 GM/DL (14.0-18.0); Immature Granulocytes % 0.7 %; Immature Granulocytes Absolute 0.06 #; Lymphocytes # 1.8 10*3/uL (1.4-4.0); Lymphocytes % 21.3 % (21.2-54.2); Mean Corpuscular HGB Conc 30.6 GM/DL (32-36); Mean Corpuscular Volume 85.2 FL (87-102); Mean Platelet Volume 8.6 FL (9.6-12.0); Monocytes # 1.1 10*3/uL (0.11-0.8); Monocytes % 12.6 % (1.7-12.7); Platelet Count 491 T/CUMM (130-400); Red Blood Count 2.84 MC/CUMM (3.8-5.5); Red Cell Distribution Width 15.2 % (9.3-17.3); White Blood Count 8.6 T/CUMM (4-12)
[2021-11-30 07:14] LABS: Anisocytosis Slight; Hypochromia Slight; Platelet Estimate Normal
[2021-11-30 07:32] LABS: Calcium 8.6 MG/DL (8.5-10.1); Osmolality,Calculated 289.5 MOS/KG (273-304); Potassium 4.7 MMOL/L (3.5-5.1)
[2021-11-30] MEDS: DOCUSATE SODIUM 100 MG CAPSULE PO SCH ×2 (08:30→20:44)
[2021-11-30] MEDS: IRON (CARBONYL)/VIT C/B12/FA TABLET PO SCH (08:30)
[2021-11-30] MEDS: FLUCONAZOLE 100 MG TABLET PO SCH (08:30)
[2021-11-30] MEDS: PANTOPRAZOLE 40 MG TABLET PO SCH (08:30)
[2021-11-30] MEDS: GABAPENTIN 300 MG CAPSULE PO SCH ×2 (08:30→20:44)
[2021-11-30] MEDS: CHOLECALCIFEROL 5,000 UNIT TABLET PO SCH (08:30)
[2021-11-30] MEDS: SULFAMETHOX/TRIMETHOPRIM 800-160 MG TABLET PO SCH ×2 (08:31→17:07)
[2021-11-30] MEDS: lisinopriL 20 MG TABLET PO SCH (08:31)
[2021-11-30] MEDS: MULTIVITAMIN (BEROCCA) TABLET PO SCH (08:31)
[2021-11-30] MEDS: POLYETHYLENE GLYCOL POWDER 17 GM PACK PO SCH ×2 (08:41→20:46)
[2021-11-30] MEDS: NYSTATIN/TRIAMCINOLONE CREAM 15 GM TUBE TOP SCH ×2 (08:43→20:46)
[2021-11-30] MEDS: NICOTINE 21 MG/24 HR PATCH TRANSDERM SCH (08:43)
[2021-11-30] MEDS: MENTHOL/ZINC OXIDE OINT 71 GM JAR TOP SCH (08:43)
[2021-11-30] MEDS: DESITIN 4OZ/NYSTATIN 15 GRAM MIXTURE PASTE TOP SCH ×2 (08:44→20:45)
[2021-11-30] MEDS: FERRIC GLUCONATE COMPLEX 125 MG in SODIUM CHLORIDE 0.9% 100 ML IV SCH (08:48)
[2021-11-30] MEDS: INSULIN REGULAR 100 UNIT/ML SUBCUT SCH ×4 (08:53→20:45)
[2021-11-30] MEDS: DICLOFENAC 1% GEL 100 GM TUBE TOP SCH ×3 (11:22→20:46)
[2021-11-30] MEDS: ENOXAPARIN 40 MG/0.4 ML SYRINGE SUBCUT SCH (17:07)
[2021-11-30] MEDS: buPROPion SR 100 MG TABLET PO SCH (20:44)
[2021-11-30] MEDS: INSULIN GLARGINE 100 UNIT/ML SUBCUT SCH (20:45)
[2021-12-01] MEDS: FERRIC GLUCONATE COMPLEX 125 MG in SODIUM CHLORIDE 0.9% 100 ML IV SCH (09:56)
[2021-12-01] MEDS: IRON (CARBONYL)/VIT C/B12/FA TABLET PO SCH (09:57)
[2021-12-01] MEDS: SULFAMETHOX/TRIMETHOPRIM 800-160 MG TABLET PO SCH (09:57)
[2021-12-01] MEDS: POLYETHYLENE GLYCOL POWDER 17 GM PACK PO SCH (09:57)
[2021-12-01] MEDS: NICOTINE 21 MG/24 HR PATCH TRANSDERM SCH (09:57)
[2021-12-01] MEDS: INSULIN REGULAR 100 UNIT/ML SUBCUT SCH ×2 (09:57→12:30)
[2021-12-01] MEDS: PANTOPRAZOLE 40 MG TABLET PO SCH (09:57)
[2021-12-01] MEDS: lisinopriL 20 MG TABLET PO SCH (09:57)
[2021-12-01] MEDS: CHOLECALCIFEROL 5,000 UNIT TABLET PO SCH (09:57)
[2021-12-01] MEDS: DOCUSATE SODIUM 100 MG CAPSULE PO SCH (09:57)
[2021-12-01] MEDS: MULTIVITAMIN (BEROCCA) TABLET PO SCH (09:57)
[2021-12-01] MEDS: GABAPENTIN 300 MG CAPSULE PO SCH (09:58)
[2021-12-01] MEDS: FLUCONAZOLE 100 MG TABLET PO SCH (09:58)
[2021-12-01] MEDS: MENTHOL/ZINC OXIDE OINT 71 GM JAR TOP SCH (09:59)
[2021-12-01] MEDS: DESITIN 4OZ/NYSTATIN 15 GRAM MIXTURE PASTE TOP SCH (09:59)
[2021-12-01] MEDS: NYSTATIN/TRIAMCINOLONE CREAM 15 GM TUBE TOP SCH (10:15)
[2021-12-01] MEDS: DICLOFENAC 1% GEL 100 GM TUBE TOP SCH ×2 (10:50→14:30)
[2021-12-01 13:35] VITALS: BP 151/66
== END 2021-12-01 15:25 | DRG 240 ==
LOC: SUATTDRO → N.ED 11:36 → SUATTDRO 14:13 → N.EDINP 14:13 → N.3E 19:46
PROVIDERS: ADMIT Hospitalist; ATTEND Internal Medicine